=== PATIENT | female | born 1930 | race African-American/Black ===

== ENCOUNTER 2019-07-03 12:43 | Inpatient (IN) | payer MEDICARE, OTHER ==
[2019-07-03] VITALS (8 sets, daily range): BP systolic 133–168; BP diastolic 46–55
[~2019-07-03] VITALS: Ht 162.6 cm; Wt 78.8 kg
[~2019-07-03 12:43] MED LIST: ASPI-1009 PO; DEXT30DR6 OP; DONE5TAB3 PO; FERR325T28 PO; HYDR12.522 PO; LEVO88TA28 PO; LOVA40TA76 PO; MEMA5TAB PO; NOR5T PO; POTA20TA19 PO; VALS160T2 PO
--- NOTE | 2019-07-03 12:45 | NUR ---
MD IN ROOM, CENTRAL LINE BEING PLACED.
--- NOTE | 2019-07-03 12:45 | NUR ---
DURING TRIAGE, PT. WAS ALERT AND ORIENTED. TALKING TO US. PT. STOPPED RESPONDING, HAD A PULSE AND HAD A NEAR SYNCOPAL EPISODE, WAS CALLED TO ROOM
[2019-07-03] MEDS ORDERED: LIDOcaine 1% w/EPI 1:200,000 injection 10mL vial IM ONE (13:05)
[2019-07-03] MEDS ORDERED: LIDOcaine 1% w/EPI 1:100,000 30ml vial (MDV) IJ ONE (13:05)
--- NOTE | 2019-07-03 13:13 | NUR ---
PT. HAD A NEAR SYNCOPAL EPISODE. PER MD WE ARE EXTERNALLY PACING PT. HR FLUCTUATES RANGE IS SEEN FROM 24-36BPM
[2019-07-03 13:15] LABS: BASOPHILS # (AUTO) 0.1 X10'3 (0-0.2); BASOPHILS % (AUTO) 0.5 % (0-1); EOSINOPHILS # (AUTO) 0.1 X10'3 (0-0.9); EOSINOPHILS % (AUTO) 0.6 % (0-6); HEMATOCRIT 40.1 % (35.0-45.0); HEMOGLOBIN 13.1 g/dl (12.0-16.0); LYMPHOCYTES # (AUTO) 0.8 X10'3 (1.1-4.8); LYMPHOCYTES % (AUTO) 8.4 % (21-51); MEAN CORPUSCULAR HEMOGLOBIN 26.9 PG (27.0-31.0); MEAN CORPUSCULAR HGB CONC 32.7 g/dL (33.0-36.5); MEAN CORPUSCULAR VOLUME 82.2 FL (78-98); MEAN PLATELET VOLUME 9.9 FL (7.4-10.4); MONOCYTES # (AUTO) 0.4 X10'3 (0-0.9); MONOCYTES % (AUTO) 4.5 % (2-12); NEUTROPHILS # (AUTO) 8.1 X10'3 (1.8-7.7); PLATELET COUNT 151 X10'3 (140-440); RED BLOOD COUNT 4.88 X10'6 (4.20-5.60); RED CELL DISTRIBUTION WIDTH 15.8 % (11.5-14.5); WHITE BLOOD COUNT 9.4 X10'3 (4.5-11.0)
--- NOTE | 2019-07-03 13:22 | NUR ---
EXTERNALLY PACED AT 72PRM 60mA
--- NOTE | 2019-07-03 13:24 | NUR ---
externally paced at 90mA and 72bpm
--- NOTE | 2019-07-03 13:25 | NUR ---
verbal order for 50mcg of fentaly given my MD OHLFS
[2019-07-03] MEDS ORDERED: fentaNYL/PF 50MCG/1 ML 2ML syringe ONE ×2 (13:27→16:36)
[2019-07-03] MEDS ORDERED: fentaNYL/PF 50MCG/1 ML 2ML syringe IV ONE (13:30)
[2019-07-03] MEDS ORDERED: ondansetron/PF 4mg/2ml inj IV ONE (13:30)
[2019-07-03 13:31] LABS: PARTIAL THROMBOPLASTIN TIME 29 SECONDS (22-32)
[2019-07-03 13:34] LABS: ALANINE AMINOTRANSFERASE 59 U/L (12-78); ALBUMIN 3.7 G/DL (3.4-5.0); ALBUMIN/GLOBULIN RATIO 0.9 (1.1-1.5); ALKALINE PHOSPHATASE 76 IU/L (46-116); ANION GAP 11 (8-16); ASPARTATE AMINO TRANSFERASE 27 U/L (10-37); BILIRUBIN,TOTAL 0.5 MG/DL (0.1-1.0); BLOOD UREA NITROGEN 55 MG/DL (7-18); BUN/CREATININE RATIO 25.8 (6.6-38.0); CALCIUM 8.8 MG/DL (8.5-10.1); CHLORIDE 110 MMOL/L (99-107); CREATININE 2.13 MG/DL (0.40-0.90); GLUCOSE 213 MG/DL (70-104); SODIUM 140 MMOL/L (135-145); TOTAL CARBON DIOXIDE 19.1 MMOL/L (24-32); TOTAL PROTEIN 7.7 G/DL (6.4-8.2); eGFR 26 ML/MIN
--- NOTE | 2019-07-03 13:35 | NUR ---
ARTERIAL LINE BEING PLACED BY MD IN ROOM. PT. IS TALKING TO US AND BEING COOPERATIVE.
[2019-07-03 13:39] LABS: POTASSIUM 6.8 MMOL/L (3.5-5.1)
[2019-07-03] MEDS ORDERED: CLINDAmcin 900mg/NS 50ml IVPB 50 ML IV ONE (13:45)
[2019-07-03] MEDS ORDERED: normal saline 1000ML IV soln IVB ONE (13:50)
[2019-07-03] MEDS ORDERED: sodium bicarbonate (8.4%) inj. 1 MEQ/ML ML IV ONE (13:50)
[2019-07-03] MEDS ORDERED: dextrose 50%-water 50ml dispensing syringe IV ONE (13:50)
[2019-07-03] MEDS ORDERED: insulin regular, human 10 units/0.1 ml syringe IV ONE (13:50)
[2019-07-03] MEDS ORDERED: furosemide 40mg/4ml inj IV ONE (13:50)
[2019-07-03] MEDS ORDERED: acetaminophen 325mg tablet PO PRN ×2 (15:15)
[2019-07-03] MEDS ORDERED: sodium bicarbonate (8.4%) inj. 150 MEQ in dextrose 5%-water 1,000 ML IV SCH (15:20)
[2019-07-03] MEDS ORDERED: sodium polystyrene sulfonate 15gm/60ml oral suspension PO ONE (15:35)
--- NOTE | 2019-07-03 16:06 | NUR ---
Spoke with Dr Castro at this time regarding repeat K lab prior to administering kaexylate (see emar), okay to order K prior to admin.
[2019-07-03] MEDS ORDERED: midazolam 2 mg/2 ml injection ONE (16:36)
[2019-07-03] MEDS ORDERED: clindamycin phosphate 150mg/ml inj. ONE (16:36)
[2019-07-03] MEDS ORDERED: clindamycin 600mg/D5W 50ml 50 ML IV ONE (16:36)
[2019-07-03] MEDS ORDERED: LIDOcaine 1% W/epiNEPHrine 1:100,000 20ml vial ONE (16:36)
[2019-07-03] MEDS: sodium bicarbonate (8.4%) inj. 75 MEQ in dextrose 5% water 500ml 500 ML IV SCH ×2 (16:40→23:33)
[2019-07-03 16:50] LABS: ALBUMIN 3.1 G/DL (3.4-5.0); ANION GAP 11 (8-16); BLOOD UREA NITROGEN 53 MG/DL (7-18); BUN/CREATININE RATIO 25.6 (6.6-38.0); CALCIUM 8.3 MG/DL (8.5-10.1); CHLORIDE 111 MMOL/L (99-107); CREATININE 2.07 MG/DL (0.40-0.90); GLUCOSE 330 MG/DL (70-104); PHOSPHORUS 3.1 MG/DL (2.3-4.5); SODIUM 145 MMOL/L (135-145); TOTAL CARBON DIOXIDE 22.9 MMOL/L (24-32); eGFR 27 ML/MIN
--- NOTE | 2019-07-03 17:08 | NUR ---
TO SPRAYING MACHINE OPERATOR WITH DUSTIN ARZATE AT THIS TIME.
--- NOTE | 2019-07-03 19:09 | NUR ---
Pt back from the clinical laboratory scientist just prior to shift change. Received patient report from Sada CHAN. PPM in place, left arm in a sling. Temporary pacemaker off but connected. Transducing artline to right groin.
[2019-07-03 20:22] LABS: ALBUMIN 2.3 G/DL (3.4-5.0); ANION GAP 14 (8-16); BLOOD UREA NITROGEN 41 MG/DL (7-18); BUN/CREATININE RATIO 29.3 (6.6-38.0); CHLORIDE 118 MMOL/L (99-107); GLUCOSE 214 MG/DL (70-104); MAGNESIUM 1.3 MG/DL (1.5-2.4); PHOSPHORUS 2.9 MG/DL (2.3-4.5); POTASSIUM 3.1 MMOL/L (3.5-5.1); SODIUM 148 MMOL/L (135-145); TOTAL CARBON DIOXIDE 16.3 MMOL/L (24-32); eGFR 43 ML/MIN
[2019-07-03 20:33] LABS: CALCIUM 5.3 MG/DL (8.5-10.1)
[2019-07-03] MEDS ORDERED: calcium chloride 100 MG/1 ML inj IV ONE (20:40)
[2019-07-03] MEDS: docusate sod 100mg capsule PO SCH (21:07)
[2019-07-03] MEDS: heparin, porcine 5000 units/ml vial SQ SCH (21:07)
--- NOTE | 2019-07-03 22:00 | NUR ---
Assumed patient care. I have received report from Amy Faye RN. Patient resting comfortably in bed, offers no complaints at this time. Will continue to monitor.
--- NOTE | 2019-07-03 22:01 | NUR ---
pt report given to Charlotte CHAN
[2019-07-04] VITALS (20 sets, daily range): BP systolic 148–190; BP diastolic 46–69
--- NOTE | 2019-07-04 00:04 | NUR ---
Problems reprioritized. Patient report given, questions answered & plan of care reviewed with Lauren CHAN.
[2019-07-04] MEDS: clindamycin 600mg/D5W 50ml 50 ML IV SCH ×3 (00:42→17:00)
[2019-07-04] MEDS: hydrALAZINE 20mg/ml inj. IV PRN ×2 (02:37→11:50)
[2019-07-04] MEDS: sodium bicarbonate (8.4%) inj. 75 MEQ in dextrose 5% water 500ml 500 ML IV SCH ×5 (03:01→23:04)
[2019-07-04 03:04] LABS: BASOPHILS % (AUTO) 0.3 % (0-1); EOSINOPHILS % (AUTO) 0.5 % (0-6); HEMATOCRIT 33.3 % (35.0-45.0); LYMPHOCYTES % (AUTO) 11.3 % (21-51); MEAN CORPUSCULAR HEMOGLOBIN 26.7 PG (27.0-31.0); MEAN CORPUSCULAR HGB CONC 33.2 g/dL (33.0-36.5); MEAN CORPUSCULAR VOLUME 80.3 FL (78-98); MEAN PLATELET VOLUME 9.8 FL (7.4-10.4); MONOCYTES # (AUTO) 0.7 X10'3 (0-0.9); MONOCYTES % (AUTO) 7.6 % (2-12); NEUTROPHILS # (AUTO) 7.3 X10'3 (1.8-7.7); NEUTROPHILS % (AUTO) 80.3 % (42-75); PLATELET COUNT 131 X10'3 (140-440); RED BLOOD COUNT 4.14 X10'6 (4.20-5.60); RED CELL DISTRIBUTION WIDTH 15.5 % (11.5-14.5); WHITE BLOOD COUNT 9.1 X10'3 (4.5-11.0)
[2019-07-04 03:14] LABS: ALANINE AMINOTRANSFERASE 42 U/L (12-78); ALBUMIN 2.9 G/DL (3.4-5.0); ALBUMIN/GLOBULIN RATIO 0.9 (1.1-1.5); ALKALINE PHOSPHATASE 61 IU/L (46-116); ANION GAP 8 (8-16); ASPARTATE AMINO TRANSFERASE 16 U/L (10-37); BILIRUBIN,TOTAL 0.5 MG/DL (0.1-1.0); BLOOD UREA NITROGEN 45 MG/DL (7-18); CALCIUM 8.3 MG/DL (8.5-10.1); CHLORIDE 109 MMOL/L (99-107); CREATININE 1.73 MG/DL (0.40-0.90); GLUCOSE 179 MG/DL (70-104); POTASSIUM 4.3 MMOL/L (3.5-5.1); SODIUM 144 MMOL/L (135-145); TOTAL CARBON DIOXIDE 26.6 MMOL/L (24-32); eGFR 34 ML/MIN
[2019-07-04 03:16] LABS: MAGNESIUM 1.7 MG/DL (1.5-2.4); PHOSPHORUS 4.3 MG/DL (2.3-4.5)
[2019-07-04 03:17] LABS: TROPONIN I 0.09 NG/ML (0.0-0.05)
[2019-07-04] MEDS ORDERED: pantoprazole 40 MG vial IV SCH (08:00)
[2019-07-04] MEDS ORDERED: MULT-955 PO (08:51)
[2019-07-04] MEDS: pantoprazole 40mg Tablet.DR PO SCH (10:57)
[2019-07-04] MEDS: docusate sod 100mg capsule PO SCH ×2 (10:57→20:00)
[2019-07-04] MEDS: heparin, porcine 5000 units/ml vial SQ SCH ×2 (10:58→20:19)
[2019-07-04 11:48] LABS: ALBUMIN 2.8 G/DL (3.4-5.0); ANION GAP 11 (8-16); BLOOD UREA NITROGEN 36 MG/DL (7-18); BUN/CREATININE RATIO 23.7 (6.6-38.0); CALCIUM 7.8 MG/DL (8.5-10.1); CHLORIDE 106 MMOL/L (99-107); CREATININE 1.52 MG/DL (0.40-0.90); GLUCOSE 219 MG/DL (70-104); PHOSPHORUS 3.3 MG/DL (2.3-4.5); POTASSIUM 4.1 MMOL/L (3.5-5.1); SODIUM 144 MMOL/L (135-145); TOTAL CARBON DIOXIDE 26.6 MMOL/L (24-32); eGFR 39 ML/MIN
[2019-07-04] MEDS: losartan 50mg tablet PO SCH (14:46)
[2019-07-04] MEDS: amLODIPine 5mg tablet PO SCH (14:46)
--- NOTE | 2019-07-04 18:35 | NUR ---
Patient in room CICU 2008. I have received report from Sada CHAN and had the opportunity to ask questions and assume patient care. Patient sitting in bed eating dinner, very confused and constantly asking if she can get out of bed to use the bathroom. Educated patient that she cannot get up due to placement of arterial line in groin. Patient otherwise stable, offers no other complaints at this time. Will continue to re-orient patient as needed, bed exit alarm on.
[2019-07-04] MEDS: ondansetron/PF 4mg/2ml inj IV PRN (20:03)
[2019-07-04] MEDS: memantine 5mg tablet PO SCH (20:19)
[2019-07-04 23:43] LABS: ALBUMIN 2.7 G/DL (3.4-5.0); ANION GAP 6 (8-16); BLOOD UREA NITROGEN 35 MG/DL (7-18); BUN/CREATININE RATIO 22.3 (6.6-38.0); CALCIUM 8.1 MG/DL (8.5-10.1); CHLORIDE 106 MMOL/L (99-107); CREATININE 1.57 MG/DL (0.40-0.90); GLUCOSE 147 MG/DL (70-104); PHOSPHORUS 3.7 MG/DL (2.3-4.5); POTASSIUM 3.9 MMOL/L (3.5-5.1); SODIUM 142 MMOL/L (135-145); TOTAL CARBON DIOXIDE 30.5 MMOL/L (24-32); eGFR 38 ML/MIN
[2019-07-05] VITALS (28 sets, daily range): BP systolic 145–181; BP diastolic 55–68
--- NOTE | 2019-07-05 00:10 | NUR ---
Patient very confused and forgetful, constantly taking nasal cannula off. Saturation drops to 87% with oxygen off. Will continue to re-orient patient and remind that she needs nasal cannula in.
[2019-07-05 04:49] LABS: BASOPHILS % (AUTO) 0.4 % (0-1); EOSINOPHILS # (AUTO) 0.1 X10'3 (0-0.9); HEMATOCRIT 33.4 % (35.0-45.0); LYMPHOCYTES # (AUTO) 0.8 X10'3 (1.1-4.8); LYMPHOCYTES % (AUTO) 11.1 % (21-51); MEAN CORPUSCULAR HEMOGLOBIN 26.7 PG (27.0-31.0); MEAN CORPUSCULAR HGB CONC 32.8 g/dL (33.0-36.5); MEAN CORPUSCULAR VOLUME 81.4 FL (78-98); MEAN PLATELET VOLUME 9.5 FL (7.4-10.4); MONOCYTES # (AUTO) 0.7 X10'3 (0-0.9); MONOCYTES % (AUTO) 10.1 % (2-12); NEUTROPHILS # (AUTO) 5.6 X10'3 (1.8-7.7); NEUTROPHILS % (AUTO) 76.4 % (42-75); PLATELET COUNT 112 X10'3 (140-440); RED BLOOD COUNT 4.11 X10'6 (4.20-5.60); WHITE BLOOD COUNT 7.3 X10'3 (4.5-11.0)
[2019-07-05 04:52] LABS: ALANINE AMINOTRANSFERASE 33 U/L (12-78); ALBUMIN 2.6 G/DL (3.4-5.0); ALBUMIN/GLOBULIN RATIO 0.9 (1.1-1.5); ALKALINE PHOSPHATASE 58 IU/L (46-116); ANION GAP 4 (8-16); ASPARTATE AMINO TRANSFERASE 14 U/L (10-37); BILIRUBIN,TOTAL 0.4 MG/DL (0.1-1.0); BLOOD UREA NITROGEN 31 MG/DL (7-18); BUN/CREATININE RATIO 20.3 (6.6-38.0); CALCIUM 7.9 MG/DL (8.5-10.1); CHLORIDE 105 MMOL/L (99-107); CREATININE 1.53 MG/DL (0.40-0.90); GLUCOSE 153 MG/DL (70-104); MAGNESIUM 1.7 MG/DL (1.5-2.4); PHOSPHORUS 3.6 MG/DL (2.3-4.5); POTASSIUM 3.7 MMOL/L (3.5-5.1); SODIUM 141 MMOL/L (135-145); TOTAL CARBON DIOXIDE 32.5 MMOL/L (24-32); TOTAL PROTEIN 5.5 G/DL (6.4-8.2); eGFR 39 ML/MIN
--- NOTE | 2019-07-05 06:24 | NUR ---
Problems reprioritized. Patient report given, questions answered & plan of care reviewed with Sascha CAHN.
[2019-07-05] MEDS ORDERED: amLODIPine 5mg tablet PO SCH (08:00)
[2019-07-05] MEDS: pantoprazole 40mg Tablet.DR PO SCH (08:19)
[2019-07-05] MEDS: atorvastatin 10mg tablet PO SCH (08:19)
[2019-07-05] MEDS: levoTHYROXINE 88mcg tablet PO SCH (08:19)
[2019-07-05] MEDS: multivitamins, therapeutics tablet PO SCH (08:19)
[2019-07-05] MEDS: docusate sod 100mg capsule PO SCH ×2 (08:19→19:45)
[2019-07-05] MEDS: HYDROchlorothiazide 12.5mg capsule PO SCH (08:19)
[2019-07-05] MEDS: heparin, porcine 5000 units/ml vial SQ SCH ×2 (08:20→19:46)
[2019-07-05] MEDS: donepezil 5mg tablet PO SCH (08:20)
[2019-07-05] MEDS: memantine 5mg tablet PO SCH ×2 (08:20→19:45)
[2019-07-05] MEDS: ferrous sulfate 325mg tablet PO SCH (08:20)
[2019-07-05] MEDS: hydrALAZINE 20mg/ml inj. IV PRN (09:22)
[2019-07-05] MEDS ORDERED: furosemide 40mg/4ml inj IV ONE (09:50)
[2019-07-05] MEDS ORDERED: furosemide 40mg/4ml inj ONE (09:51)
[2019-07-05] MEDS: amLODIPine 5mg tablet PO SCH (13:47)
[2019-07-05] MEDS: losartan 50mg tablet PO SCH (13:47)
[2019-07-05] MEDS ORDERED: lactulose 20gm/30ml cup PO PRN (15:15)
--- NOTE | 2019-07-05 18:44 | NUR ---
icu day shift RN called report to PCU night shift supervisor nurse patient went up in hospital bed on tele with personal belongings,no observable s/s of acute stress at this time
--- NOTE | 2019-07-05 18:44 | NUR ---
End of shift report; blood glucose results reported to Dr. Joaquin, no new orders. Report called to Valarie on PCU at 1840.
--- NOTE | 2019-07-05 18:44 | NUR ---
Patient in room CICU 2008. I have received report from DUSTIN Caicedo and had the opportunity to ask questions. Awaiting patient transfer to room 3009 on PCU.
--- NOTE | 2019-07-05 19:30 | NUR ---
Patient arrived to floor at 1915 by hospital bed. Patient awake and alert. 2L NC. All patient belongings and chart transferred with patient. SCD's placed. On telemetry unit 44. Patient is complaining of left sided foot pain. Hot to touch. Pictures obtained and placed in chart. Sitter in room. Will continue to monitor closely.
--- NOTE | 2019-07-05 22:51 | NUR ---
Left foot hot to touch. 20 G L AC infiltrated. No IV access at this time. Raymond Acevedo NP notified. No new orders at this time. Will continue to monitor closely.
--- NOTE | 2019-07-05 23:41 | NUR ---
Patient Systolic BP elevated 169/62 right arm; 160/61 left arm. Curtis notified. Orders for 25 mg vasotec obtained, however, [facility] pharmacy does not carry PO vasotec. Attempted to contact Curtis again to notify and obtain substitue. On standby and will contact again shortly. Addendum: 07/05/19 at 2355 by Luiz Howard RN Contacted Curtis and clarified order. 25 mg PO hydralazine q6h for systolic over 165.
[2019-07-06] MEDS: hydrALAZINE 25 MG tablet PO PRN (00:06)
[2019-07-06 02:00] VITALS: BP 148/64
--- NOTE | 2019-07-06 03:25 | NUR ---
Attempted to notify on-call provider scribe of elevated systolic of 159/59. Patient received 25 mg Hydralazine PO at midnight. Will attempt to call again shortly.
[2019-07-06 06:00] VITALS: BP 152/56
--- NOTE | 2019-07-06 06:00 | NUR ---
Patient in room PCU 3008. I have received report from Fer CHAN and had the opportunity to ask questions and assume patient care.
[2019-07-06 06:07] LABS: BASOPHILS % (AUTO) 0.4 % (0-1); EOSINOPHILS # (AUTO) 0.2 X10'3 (0-0.9); EOSINOPHILS % (AUTO) 1.8 % (0-6); HEMATOCRIT 33.3 % (35.0-45.0); LYMPHOCYTES # (AUTO) 0.8 X10'3 (1.1-4.8); LYMPHOCYTES % (AUTO) 9.7 % (21-51); MEAN CORPUSCULAR HEMOGLOBIN 26.8 PG (27.0-31.0); MEAN CORPUSCULAR VOLUME 81.1 FL (78-98); MONOCYTES # (AUTO) 0.8 X10'3 (0-0.9); MONOCYTES % (AUTO) 9.4 % (2-12); NEUTROPHILS # (AUTO) 6.9 X10'3 (1.8-7.7); NEUTROPHILS % (AUTO) 78.7 % (42-75); PLATELET COUNT 115 X10'3 (140-440); RED BLOOD COUNT 4.11 X10'6 (4.20-5.60); RED CELL DISTRIBUTION WIDTH 14.9 % (11.5-14.5); WHITE BLOOD COUNT 8.7 X10'3 (4.5-11.0)
[2019-07-06 06:27] LABS: ALANINE AMINOTRANSFERASE 27 U/L (12-78); ALBUMIN 2.5 G/DL (3.4-5.0); ALBUMIN/GLOBULIN RATIO 0.8 (1.1-1.5); ALKALINE PHOSPHATASE 55 IU/L (46-116); ANION GAP 7 (8-16); ASPARTATE AMINO TRANSFERASE 14 U/L (10-37); BILIRUBIN,TOTAL 0.5 MG/DL (0.1-1.0); BLOOD UREA NITROGEN 28 MG/DL (7-18); BUN/CREATININE RATIO 19.3 (6.6-38.0); CHLORIDE 100 MMOL/L (99-107); CREATININE 1.45 MG/DL (0.40-0.90); GLUCOSE 132 MG/DL (70-104); MAGNESIUM 1.9 MG/DL (1.5-2.4); POTASSIUM 3.6 MMOL/L (3.5-5.1); SODIUM 139 MMOL/L (135-145); TOTAL CARBON DIOXIDE 32.1 MMOL/L (24-32); TOTAL PROTEIN 5.8 G/DL (6.4-8.2); eGFR 41 ML/MIN
--- NOTE | 2019-07-06 06:30 | NUR ---
Problems reprioritized. Patient report given, questions answered & plan of care reviewed with Cristal CHAN.
--- NOTE | 2019-07-06 06:30 | NUR ---
Problems reprioritized. Patient report given, questions answered & plan of care reviewed with DUSTIN Lu.
--- NOTE | 2019-07-06 06:50 | NUR ---
Paged PICC nurse [phone] Ashleigh Hernandez NOC shift attempted PIV x3. Unable to get a line. IV access needed. Thanks!
[2019-07-06] MEDS: donepezil 5mg tablet PO SCH (07:29)
[2019-07-06] MEDS: ferrous sulfate 325mg tablet PO SCH (07:29)
[2019-07-06] MEDS: pantoprazole 40mg Tablet.DR PO SCH (07:29)
[2019-07-06] MEDS: docusate sod 100mg capsule PO SCH ×2 (07:29→19:38)
[2019-07-06] MEDS: levoTHYROXINE 88mcg tablet PO SCH (07:29)
[2019-07-06] MEDS: multivitamins, therapeutics tablet PO SCH (07:29)
[2019-07-06] MEDS: memantine 5mg tablet PO SCH ×2 (07:30→19:39)
[2019-07-06] MEDS: atorvastatin 10mg tablet PO SCH (07:30)
[2019-07-06] MEDS: heparin, porcine 5000 units/ml vial SQ SCH ×2 (07:31→19:38)
[2019-07-06] MEDS: HYDROchlorothiazide 12.5mg capsule PO SCH (07:33)
[2019-07-06 11:00] VITALS: BP 138/60
[2019-07-06 11:19] LABS: CLARITY,URINE TURBID (Clear); COLOR,URINE AMBER (Yellow); GLUCOSE, URINE NEGATIVE (Neg); KETONES,URINE NEGATIVE (Neg); LEUKOCYTE ESTERASE ,URINE TRACE (Neg); NITRITES, URINE NEGATIVE (Neg); OCCULT BLOOD,URINE LARGE (Neg); PH,URINE 6.5 (4.8-8.0); PROTEIN,URINE 100 mg/dl (Neg); UROBILINOGEN,URINE 0.2 E.U/dL (0.2-1.0)
[2019-07-06 11:22] LABS: UA COLLECTION TYPE FOLEY CATH
[2019-07-06 11:33] LABS: SQUAMOUS EPITHELIAL CELL,UR FEW /LPF (FEW)
[2019-07-06 11:34] LABS: BACTERIA,URINE FEW /HPF (Neg); RBC,URINE TNTC /HPF (0-2)
[2019-07-06 11:35] LABS: WBC CLUMPS,URINE FEW /HPF (NEGATIVE)
[2019-07-06] MEDS: losartan 50mg tablet PO SCH (14:40)
[2019-07-06] MEDS: amLODIPine 5mg tablet PO SCH (14:41)
[2019-07-06 15:00] VITALS: BP 137/56
--- NOTE | 2019-07-06 16:29 | NUR ---
Discontinued freed catheter. 10ml aspirated from freed balloon. Patient tolerated removal well. Will monitor for normal voiding and output.
--- NOTE | 2019-07-06 18:30 | NUR ---
Patient in room PCU 3008. I have received report from Tabitha CHAN and had the opportunity to ask questions and assume patient care. Patient is alert and oriented. Sitter is at bedside, will continue to monitor.
[2019-07-06 19:00] VITALS: BP 150/54
[2019-07-06 23:00] VITALS: BP 142/52
[2019-07-07 03:00] VITALS: BP 132/51
[2019-07-07 05:20] LABS: BASOPHILS % (AUTO) 0.5 % (0-1); EOSINOPHILS # (AUTO) 0.2 X10'3 (0-0.9); EOSINOPHILS % (AUTO) 2.3 % (0-6); HEMATOCRIT 31.3 % (35.0-45.0); HEMOGLOBIN 10.5 g/dl (12.0-16.0); LYMPHOCYTES # (AUTO) 0.8 X10'3 (1.1-4.8); LYMPHOCYTES % (AUTO) 8.8 % (21-51); MEAN CORPUSCULAR HEMOGLOBIN 27.1 PG (27.0-31.0); MEAN CORPUSCULAR HGB CONC 33.6 g/dL (33.0-36.5); MEAN CORPUSCULAR VOLUME 80.8 FL (78-98); MONOCYTES # (AUTO) 0.9 X10'3 (0-0.9); MONOCYTES % (AUTO) 9.6 % (2-12); NEUTROPHILS # (AUTO) 7.6 X10'3 (1.8-7.7); NEUTROPHILS % (AUTO) 78.8 % (42-75); PLATELET COUNT 129 X10'3 (140-440); RED BLOOD COUNT 3.87 X10'6 (4.20-5.60); RED CELL DISTRIBUTION WIDTH 15.2 % (11.5-14.5); WHITE BLOOD COUNT 9.6 X10'3 (4.5-11.0)
[2019-07-07 05:52] LABS: ALANINE AMINOTRANSFERASE 30 U/L (12-78); ALBUMIN 2.6 G/DL (3.4-5.0); ALBUMIN/GLOBULIN RATIO 0.7 (1.1-1.5); ALKALINE PHOSPHATASE 56 IU/L (46-116); ANION GAP 9 (8-16); ASPARTATE AMINO TRANSFERASE 23 U/L (10-37); BILIRUBIN,TOTAL 0.5 MG/DL (0.1-1.0); BLOOD UREA NITROGEN 38 MG/DL (7-18); BUN/CREATININE RATIO 22.4 (6.6-38.0); CALCIUM 7.6 MG/DL (8.5-10.1); CHLORIDE 99 MMOL/L (99-107); GLUCOSE 147 MG/DL (70-104); PHOSPHORUS 3.8 MG/DL (2.3-4.5); POTASSIUM 3.8 MMOL/L (3.5-5.1); SODIUM 137 MMOL/L (135-145); TOTAL CARBON DIOXIDE 29.4 MMOL/L (24-32); TOTAL PROTEIN 6.2 G/DL (6.4-8.2); eGFR 34 ML/MIN
[2019-07-07 06:00] VITALS: BP 148/53
--- NOTE | 2019-07-07 06:00 | NUR ---
Patient in room PCU 3008. I have received report from Cristal CHAN and had the opportunity to ask questions and assume patient care.
--- NOTE | 2019-07-07 06:24 | NUR ---
Problems reprioritized. Patient report given, questions answered & plan of care reviewed with Tabitha CHAN.
[2019-07-07] MEDS: ferrous sulfate 325mg tablet PO SCH (09:25)
[2019-07-07] MEDS: donepezil 5mg tablet PO SCH (09:25)
[2019-07-07] MEDS: docusate sod 100mg capsule PO SCH ×2 (09:25→22:12)
[2019-07-07] MEDS: HYDROchlorothiazide 12.5mg capsule PO SCH (09:25)
[2019-07-07] MEDS: atorvastatin 10mg tablet PO SCH (09:26)
[2019-07-07] MEDS: pantoprazole 40mg Tablet.DR PO SCH (09:26)
[2019-07-07] MEDS: memantine 5mg tablet PO SCH ×2 (09:26→22:14)
[2019-07-07] MEDS: multivitamins, therapeutics tablet PO SCH (09:26)
[2019-07-07] MEDS: levoTHYROXINE 88mcg tablet PO SCH (09:26)
[2019-07-07] MEDS: heparin, porcine 5000 units/ml vial SQ SCH ×2 (09:28→22:11)
[2019-07-07 11:00] VITALS: BP 137/61
--- NOTE | 2019-07-07 12:31 | NUR ---
O2 Sat at rest on room air: 92% O2 Sat while ambulating on room air: 83% Recovery O2 Sat while ambulating on 2 LPM: 92% Addendum: 07/07/19 at 1255 by Tabitha Robles RN Amended: Links added.
[2019-07-07] MEDS: losartan 50mg tablet PO SCH (13:51)
[2019-07-07] MEDS: clindamycin 150mg capsule PO SCH ×2 (13:52→22:12)
[2019-07-07] MEDS: amLODIPine 5mg tablet PO SCH (13:52)
--- NOTE | 2019-07-07 14:00 | NUR ---
Spoke with Marcelina, patient'heather bran. While going over the patient's plan of care we had discussed her code status. I had informed Marcelina that the patient's current code status on record is FULL code, to which Marcelina stated that the patient wishes to be DNR. We spoke with the patient who was alert, oriented, and appropriate during this conversation, and she confirmed that her wish is to be DNR. Marcelina also stated that if need be, she is able to provide paperwork that supports the patient's wishes. I informed Dr. Joaquin of the conversation and he has changed her status on our records to match the patient's wishes. DNR bracelet placed on patient's left wrist for easy identification.
--- NOTE | 2019-07-07 14:11 | NUR ---
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 Pt now with a permanent pacemaker and MARY resolved per MD notes. Pt currently on heart healthy diet with fluctuating PO intake, previously 50-75% then down to 25% on 07/05. No documentation of PO intake dinner 07/05-present. D/w RN who reports pt not eating much d/t low appetite with only a few bites of eggs and bread at breakfast however with improved PO intake at lunch with about 30-50% consumed. Pt with a sitter who is encouraging PO intake per RN. LBM 07/06. Will continue to follow and monitor need for ONS. Recommendations: 1) Continue heart healthy diet 2) Encourage PO intake 3) Monitor need for ONS 4) Routine bowel care 5) Wt per rx Addendum: 07/07/19 at [address] Amended: Links added.
[2019-07-07 15:00] VITALS: BP 131/61
[2019-07-07 18:00] VITALS: BP 142/66
--- NOTE | 2019-07-07 18:00 | NUR ---
Problems reprioritized. Patient report given, questions answered & plan of care reviewed with Cristal CHAN.
--- NOTE | 2019-07-07 18:30 | NUR ---
Patient in room PCU 3008. I have received report from Tabitha CHAN and had the opportunity to ask questions and assume patient care.
[2019-07-07] MEDS: HYDROcodone/acetaminophen 5mg/325mg tablet PO PRN (18:49)
[2019-07-07 22:00] VITALS: BP 136/55
[2019-07-07] MEDS: furosemide 40mg/4ml inj IV SCH (22:11)
[2019-07-08 02:00] VITALS: BP 141/53
[2019-07-08 05:42] LABS: BASOPHILS % (AUTO) 0.2 % (0-1); EOSINOPHILS % (AUTO) 0.2 % (0-6); HEMATOCRIT 29.1 % (35.0-45.0); HEMOGLOBIN 9.8 g/dl (12.0-16.0); LYMPHOCYTES # (AUTO) 0.7 X10'3 (1.1-4.8); LYMPHOCYTES % (AUTO) 5.9 % (21-51); MEAN CORPUSCULAR HGB CONC 33.5 g/dL (33.0-36.5); MEAN CORPUSCULAR VOLUME 80.5 FL (78-98); MEAN PLATELET VOLUME 9.7 FL (7.4-10.4); MONOCYTES # (AUTO) 1.5 X10'3 (0-0.9); MONOCYTES % (AUTO) 13.4 % (2-12); NEUTROPHILS # (AUTO) 9.2 X10'3 (1.8-7.7); NEUTROPHILS % (AUTO) 80.3 % (42-75); PLATELET COUNT 127 X10'3 (140-440); RED BLOOD COUNT 3.62 X10'6 (4.20-5.60); RED CELL DISTRIBUTION WIDTH 15.1 % (11.5-14.5); WHITE BLOOD COUNT 11.4 X10'3 (4.5-11.0)
[2019-07-08 05:52] LABS: ALANINE AMINOTRANSFERASE 44 U/L (12-78); ALBUMIN 2.5 G/DL (3.4-5.0); ALBUMIN/GLOBULIN RATIO 0.6 (1.1-1.5); ALKALINE PHOSPHATASE 70 IU/L (46-116); ANION GAP 10 (8-16); ASPARTATE AMINO TRANSFERASE 29 U/L (10-37); BILIRUBIN,TOTAL 0.8 MG/DL (0.1-1.0); BLOOD UREA NITROGEN 47 MG/DL (7-18); BUN/CREATININE RATIO 23.5 (6.6-38.0); CALCIUM 7.5 MG/DL (8.5-10.1); CHLORIDE 95 MMOL/L (99-107); GLUCOSE 176 MG/DL (70-104); PHOSPHORUS 4.8 MG/DL (2.3-4.5); POTASSIUM 3.7 MMOL/L (3.5-5.1); SODIUM 135 MMOL/L (135-145); TOTAL CARBON DIOXIDE 30.1 MMOL/L (24-32); TOTAL PROTEIN 6.5 G/DL (6.4-8.2); eGFR 28 ML/MIN
[2019-07-08 06:00] VITALS: BP 195/60
--- NOTE | 2019-07-08 06:30 | NUR ---
Problems reprioritized. Patient report given, questions answered & plan of care reviewed with Heladio CHAN.
--- NOTE | 2019-07-08 07:05 | NUR ---
Patient in room PCU 3008. I have received report from DUSTIN Bee and had the opportunity to ask questions and assume patient care.
[2019-07-08] MEDS: furosemide 40mg/4ml inj IV SCH ×2 (07:17→20:12)
[2019-07-08] MEDS: ferrous sulfate 325mg tablet PO SCH (07:17)
[2019-07-08] MEDS: memantine 5mg tablet PO SCH ×2 (07:17→20:06)
[2019-07-08] MEDS: docusate sod 100mg capsule PO SCH ×2 (07:17→20:06)
[2019-07-08] MEDS: clindamycin 150mg capsule PO SCH ×2 (07:17→20:08)
[2019-07-08] MEDS: levoTHYROXINE 88mcg tablet PO SCH (07:17)
[2019-07-08] MEDS: HYDROchlorothiazide 12.5mg capsule PO SCH (07:17)
[2019-07-08] MEDS: heparin, porcine 5000 units/ml vial SQ SCH ×2 (07:17→20:12)
[2019-07-08] MEDS: donepezil 5mg tablet PO SCH (07:18)
[2019-07-08] MEDS: pantoprazole 40mg Tablet.DR PO SCH (07:18)
[2019-07-08] MEDS: multivitamins, therapeutics tablet PO SCH (07:18)
[2019-07-08] MEDS: atorvastatin 10mg tablet PO SCH (07:18)
[2019-07-08 11:00] VITALS: BP 141/61
[2019-07-08] MEDS: amLODIPine 5mg tablet PO SCH (14:44)
[2019-07-08] MEDS: losartan 50mg tablet PO SCH (14:44)
[2019-07-08 15:00] VITALS: BP 143/60
[2019-07-08 15:01] LABS: CLARITY,URINE SLIGHTLY CLOUDY (Clear); COLOR,URINE YELLOW (Yellow); GLUCOSE, URINE NEGATIVE (Neg); KETONES,URINE NEGATIVE (Neg); LEUKOCYTE ESTERASE ,URINE NEGATIVE (Neg); NITRITES, URINE NEGATIVE (Neg); OCCULT BLOOD,URINE TRACE-INTACT (Neg); PROTEIN,URINE NEGATIVE (Neg); UROBILINOGEN,URINE 0.2 E.U/dL (0.2-1.0)
[2019-07-08 15:05] LABS: UA COLLECTION TYPE STRAIGHT CATH
[2019-07-08 15:11] LABS: BACTERIA,URINE FEW /HPF (Neg); HYALINE CASTS 0-3 /LPF (NEGATIVE); MUCUS STRANDS NONE SEEN /LPF (Neg); RBC,URINE 0-2 /HPF (0-2); SQUAMOUS EPITHELIAL CELL,UR NONE SEEN /LPF (FEW); TRANSITIONAL EPI CELLS,URINE FEW /HPF; WBC CLUMPS,URINE FEW /HPF (NEGATIVE)
--- NOTE | 2019-07-08 18:05 | NUR ---
Problems reprioritized. Patient report given, questions answered & plan of care reviewed with DUSTIN Conley.
--- NOTE | 2019-07-08 18:20 | NUR ---
Patient in room U 3008. I have received report from Heladio CHAN and had the opportunity to ask questions and assume patient care. Patient is resting with sitter in the room.
[2019-07-08 19:00] VITALS: BP 131/59
[2019-07-08] MEDS: lactobacillus rhamnosus 10,000 MMU CELLS/CAPSULE PO SCH (20:05)
[2019-07-08] MEDS: tamsulosin 0.4mg capsule PO SCH (20:08)
[2019-07-08] MEDS: HYDROcodone/acetaminophen 5mg/325mg tablet PO PRN (20:11)
[2019-07-08 23:00] VITALS: BP 154/52
[2019-07-09 03:00] VITALS: BP 144/54
[2019-07-09 06:00] VITALS: BP 124/58
--- NOTE | 2019-07-09 06:07 | NUR ---
Patient in room PCU 3008. I have received report from DUSTIN Bee and had the opportunity to ask questions and assume patient care.
--- NOTE | 2019-07-09 06:13 | NUR ---
Problems reprioritized. Patient report given, questions answered & plan of care reviewed with Heladio CHAN.
[2019-07-09 06:29] LABS: BASOPHILS % (AUTO) 0.2 % (0-1); EOSINOPHILS % (AUTO) 0.2 % (0-6); HEMATOCRIT 28.1 % (35.0-45.0); HEMOGLOBIN 9.4 g/dl (12.0-16.0); LYMPHOCYTES # (AUTO) 0.6 X10'3 (1.1-4.8); LYMPHOCYTES % (AUTO) 5.6 % (21-51); MEAN CORPUSCULAR HGB CONC 33.5 g/dL (33.0-36.5); MEAN CORPUSCULAR VOLUME 80.6 FL (78-98); MEAN PLATELET VOLUME 9.2 FL (7.4-10.4); MONOCYTES # (AUTO) 1.3 X10'3 (0-0.9); MONOCYTES % (AUTO) 11.2 % (2-12); NEUTROPHILS # (AUTO) 9.3 X10'3 (1.8-7.7); NEUTROPHILS % (AUTO) 82.8 % (42-75); PLATELET COUNT 120 X10'3 (140-440); RED BLOOD COUNT 3.49 X10'6 (4.20-5.60); WHITE BLOOD COUNT 11.2 X10'3 (4.5-11.0)
[2019-07-09 06:58] LABS: ALANINE AMINOTRANSFERASE 66 U/L (12-78); ALBUMIN 2.5 G/DL (3.4-5.0); ALBUMIN/GLOBULIN RATIO 0.6 (1.1-1.5); ALKALINE PHOSPHATASE 80 IU/L (46-116); ANION GAP 11 (8-16); ASPARTATE AMINO TRANSFERASE 44 U/L (10-37); BILIRUBIN,TOTAL 0.7 MG/DL (0.1-1.0); BLOOD UREA NITROGEN 56 MG/DL (7-18); BUN/CREATININE RATIO 26.4 (6.6-38.0); CALCIUM 7.8 MG/DL (8.5-10.1); CHLORIDE 95 MMOL/L (99-107); CREATININE 2.12 MG/DL (0.40-0.90); GLUCOSE 164 MG/DL (70-104); MAGNESIUM 2.4 MG/DL (1.5-2.4); POTASSIUM 3.5 MMOL/L (3.5-5.1); SODIUM 135 MMOL/L (135-145); TOTAL CARBON DIOXIDE 29.5 MMOL/L (24-32); eGFR 27 ML/MIN
[2019-07-09] MEDS: levoTHYROXINE 88mcg tablet PO SCH (07:25)
[2019-07-09] MEDS: pantoprazole 40mg Tablet.DR PO SCH (07:49)
[2019-07-09] MEDS: ferrous sulfate 325mg tablet PO SCH (08:22)
[2019-07-09] MEDS: docusate sod 100mg capsule PO SCH ×2 (08:22→20:47)
[2019-07-09] MEDS: HYDROchlorothiazide 12.5mg capsule PO SCH (08:22)
[2019-07-09] MEDS: memantine 5mg tablet PO SCH ×2 (08:23→20:48)
[2019-07-09] MEDS: multivitamins, therapeutics tablet PO SCH (08:23)
[2019-07-09] MEDS: donepezil 5mg tablet PO SCH (08:23)
[2019-07-09] MEDS: atorvastatin 10mg tablet PO SCH (08:23)
[2019-07-09] MEDS: clindamycin 150mg capsule PO SCH ×2 (08:23→20:47)
[2019-07-09] MEDS: heparin, porcine 5000 units/ml vial SQ SCH ×2 (08:24→20:48)
[2019-07-09] MEDS: furosemide 40mg/4ml inj IV SCH (08:24)
[2019-07-09] MEDS: lactobacillus rhamnosus 10,000 MMU CELLS/CAPSULE PO SCH ×2 (08:33→20:47)
[2019-07-09 11:00] VITALS: BP 128/61
[2019-07-09] MEDS: losartan 50mg tablet PO SCH (14:37)
[2019-07-09] MEDS: amLODIPine 5mg tablet PO SCH (14:37)
[2019-07-09 15:00] VITALS: BP 128/60
--- NOTE | 2019-07-09 16:14 | NUR ---
12 pm scan and 1600 scan both under 400ml.
--- NOTE | 2019-07-09 18:10 | NUR ---
Patient in room PCU 3008. I have received report from DUSTIN Leija and had the opportunity to ask questions and assume patient care.
--- NOTE | 2019-07-09 18:18 | NUR ---
Problems reprioritized. Patient report given, questions answered & plan of care reviewed with DUSTIN Restrepo.
--- NOTE | 2019-07-09 18:52 | NUR ---
PATIENTS FAMILY AND THE PHYSICAL THERAPIST HAD A HEATED DISAGREEMENT TODAY REGARDING CARE OF THE PATIENT. PER FAMILY MEMBER THE PT WAS VERY RUDE AND ABRUPT WITH HER FAMILY. LOUANN FOSTER WAS CALLED TO ASSIST WITH THE SITUATION. LOUANN FOSTER SPOKE WITH FAMILY AND PT PERSONNEL. I WILL TALK WITH THE DIRECTOR OF THE PCU UNIT ON WEDNESDAY REGARDING THE ISSUE.
[2019-07-09 19:00] VITALS: BP 141/64
[2019-07-09] MEDS: tamsulosin 0.4mg capsule PO SCH (20:48)
[2019-07-09 23:00] VITALS: BP 120/55
--- NOTE | 2019-07-10 00:16 | NUR ---
Patient has 150 in bladder. No straight cath needed Addendum: 07/10/19 at 0017 by Kaye Tian RN Amended: Links added.
--- NOTE | 2019-07-10 00:24 | NUR ---
Spoke with October about patient's 02 sat at 92% on 5 L[address] She ordered to place patient on highflow NC at 7 L amd she is satting at 94% at this time. Will continue to monitor.
[2019-07-10 03:00] VITALS: BP 119/59
[2019-07-10 06:00] VITALS: BP 98/52
--- NOTE | 2019-07-10 06:47 | NUR ---
Problems reprioritized. Patient report given, questions answered & plan of care reviewed with DUSTIN Jimenes.
--- NOTE | 2019-07-10 06:47 | NUR ---
Patient in room PCU 3008. I have received report from Kaye CHAN and had the opportunity to ask questions and assume patient care. Patient awake and up to chair. Sitter present bedside. All immediate needs met at this time.
[2019-07-10 06:50] LABS: BASOPHILS % (AUTO) 0.2 % (0-1); EOSINOPHILS # (AUTO) 0.1 X10'3 (0-0.9); EOSINOPHILS % (AUTO) 0.6 % (0-6); HEMATOCRIT 24.9 % (35.0-45.0); HEMOGLOBIN 8.5 g/dl (12.0-16.0); LYMPHOCYTES # (AUTO) 0.7 X10'3 (1.1-4.8); LYMPHOCYTES % (AUTO) 6.4 % (21-51); MEAN CORPUSCULAR HEMOGLOBIN 27.3 PG (27.0-31.0); MEAN CORPUSCULAR VOLUME 80.3 FL (78-98); MEAN PLATELET VOLUME 9.7 FL (7.4-10.4); MONOCYTES # (AUTO) 1.2 X10'3 (0-0.9); NEUTROPHILS # (AUTO) 8.8 X10'3 (1.8-7.7); NEUTROPHILS % (AUTO) 81.8 % (42-75); PLATELET COUNT 141 X10'3 (140-440); RED CELL DISTRIBUTION WIDTH 14.9 % (11.5-14.5); WHITE BLOOD COUNT 10.8 X10'3 (4.5-11.0)
[2019-07-10 07:04] LABS: ALANINE AMINOTRANSFERASE 51 U/L (12-78); ALBUMIN 2.4 G/DL (3.4-5.0); ALBUMIN/GLOBULIN RATIO 0.5 (1.1-1.5); ALKALINE PHOSPHATASE 88 IU/L (46-116); ANION GAP 13 (8-16); ASPARTATE AMINO TRANSFERASE 18 U/L (10-37); BILIRUBIN,TOTAL 0.7 MG/DL (0.1-1.0); BLOOD UREA NITROGEN 63 MG/DL (7-18); BUN/CREATININE RATIO 29.6 (6.6-38.0); CHLORIDE 92 MMOL/L (99-107); CREATININE 2.13 MG/DL (0.40-0.90); GLUCOSE 190 MG/DL (70-104); MAGNESIUM 2.7 MG/DL (1.5-2.4); PHOSPHORUS 5.1 MG/DL (2.3-4.5); POTASSIUM 3.3 MMOL/L (3.5-5.1); SODIUM 133 MMOL/L (135-145); TOTAL PROTEIN 6.9 G/DL (6.4-8.2); eGFR 26 ML/MIN
--- NOTE | 2019-07-10 09:00 | NUR ---
Bladder scanned with 282ml, will continue to monitor. Patient states no urge to void.
[2019-07-10] MEDS: amLODIPine 5mg tablet PO SCH (09:32)
[2019-07-10] MEDS: pantoprazole 40mg Tablet.DR PO SCH (09:32)
[2019-07-10] MEDS: tamsulosin 0.4mg capsule PO SCH ×2 (09:32→21:29)
[2019-07-10] MEDS: losartan 50mg tablet PO SCH (09:32)
[2019-07-10] MEDS: hydrALAZINE 25 MG tablet PO PRN (09:32)
[2019-07-10] MEDS: clindamycin 150mg capsule PO SCH ×2 (09:33→21:30)
[2019-07-10] MEDS: memantine 5mg tablet PO SCH ×2 (09:33→21:30)
[2019-07-10] MEDS: lactobacillus rhamnosus 10,000 MMU CELLS/CAPSULE PO SCH ×2 (09:33→21:29)
[2019-07-10] MEDS: donepezil 5mg tablet PO SCH (09:33)
[2019-07-10] MEDS: atorvastatin 10mg tablet PO SCH (09:33)
[2019-07-10] MEDS: ferrous sulfate 325mg tablet PO SCH (09:33)
[2019-07-10] MEDS: multivitamins, therapeutics tablet PO SCH (09:33)
[2019-07-10] MEDS: levoTHYROXINE 88mcg tablet PO SCH (09:34)
[2019-07-10] MEDS: HYDROcodone/acetaminophen 5mg/325mg tablet PO PRN (09:34)
[2019-07-10] MEDS: docusate sod 100mg capsule PO SCH ×2 (09:34→21:31)
[2019-07-10] MEDS: heparin, porcine 5000 units/ml vial SQ SCH ×2 (09:35→21:33)
[2019-07-10] MEDS: HYDROchlorothiazide 12.5mg capsule PO SCH (09:54)
[2019-07-10 11:00] VITALS: BP 108/53
--- NOTE | 2019-07-10 11:29 | NUR ---
reassessment: Pt PO 25% avg meals past 5 days not meeting needs. 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 Sitter present encouraging PO. RD d/w RN regarding advancement to regular diet per MD approval given low PO. Ensure Enlive BIDBD added pending MD verification prior to sending on trays. Ensure pudding added at lunches; dietary notified. Na 133 placed on 700ml dietary fluid-restriction in addition to heart healthy diet on hydrochlorothiazide. Worsening acute renal failure w/ urinary retention per MD note. LBM 07/09 receiving colace. Will monitor for additional nutrition needs this admit. IF prolonged low PO greater than 7 days may require corpak to meet nutrition needs. Recommendations: 1) advance to regular diet per MD given poor PO hx 2) Encourage PO intake 3) Ensure Enlive BIDBD pending MD verification prior to sending; ensure pudding w/ lunches 4) Routine bowel care 5) IF low PO persists 7 days or greater consider alternative nutrition to meet needs 6) Weekly wts Addendum: 07/10/19 at [address] Amended: Links added.
--- NOTE | 2019-07-10 14:00 | NUR ---
Bladder scanned patient per MD orders. 636ml shown on bladder scanner. Straight cathed and received 325ml aishwarya color with cloudiness, when I retracted the catheter out, sediment was in the catheter tubing. Patient tolerated well.
[2019-07-10 15:00] VITALS: BP 117/56
[2019-07-10] MEDS ORDERED: lactose-reduced food (Ensure Enlive) - 237ml bottle PO SCH (17:30)
--- NOTE | 2019-07-10 18:21 | NUR ---
Problems reprioritized. Patient report given, questions answered & plan of care reviewed with Kaye CHAN.
--- NOTE | 2019-07-10 18:42 | NUR ---
Patient in room PCU 3008. I have received report from DUSTIN Jimenes and had the opportunity to ask questions and assume patient care.
--- NOTE | 2019-07-10 18:43 | NUR ---
Problems reprioritized. Patient report given, questions answered & plan of care reviewed with Kaye CHAN. Patient stable at transfer of care.
[2019-07-10 19:00] VITALS: BP 119/56
--- NOTE | 2019-07-10 22:18 | NUR ---
Bladder scan shows 175, straight cath not needed yet Addendum: 07/10/19 at 2219 by Kaye Tian RN Amended: Links added.
[2019-07-10 23:00] VITALS: BP 125/59
[2019-07-10] MEDS: nystatin 500,000 unit/5ML UD oral suspension PO SCH (23:54)
[2019-07-10] MEDS: POTASSIUM BICARB 20meq eff tab 20 MEQ TABLET.EFF PO SCH (23:55)
--- NOTE | 2019-07-11 01:23 | NUR ---
Called October, OSTRICH FARMER and informed her that patient's morning k was 3.3. She gave me orders for k effervescent. Informed her that patient seems to have thrush, Nystatin oral solution ordered and administered. Informed Ventura that swelling in patient's arm seems to have increased. She stated she will order a scan and we should measure it. Measurements are at 12 DENNY, 11.5 LLA
[2019-07-11 03:00] VITALS: BP 127/59
[2019-07-11] MEDS: POTASSIUM BICARB 20meq eff tab 20 MEQ TABLET.EFF PO SCH ×2 (04:32→08:31)
--- NOTE | 2019-07-11 05:38 | NUR ---
Measurements of arm bi lat aprrox 0000 DENNY 12 IN LLA 11.5 0500 DENNY 12.5 LLA 11.5 JULY 13 RLA 11.5 Ventura PERMANENT MOLD SUPERVISOR is going to scan both arms to rule out clotting.
--- NOTE | 2019-07-11 05:40 | NUR ---
bladder scan showed 400 mL, when straight cath performed only 200 out with much sediment clogging tip of catheter.
[2019-07-11 05:45] LABS: BASOPHILS # (AUTO) 0.1 X10'3 (0-0.2); BASOPHILS % (AUTO) 0.5 % (0-1); EOSINOPHILS # (AUTO) 0.1 X10'3 (0-0.9); EOSINOPHILS % (AUTO) 0.9 % (0-6); HEMATOCRIT 25.7 % (35.0-45.0); HEMOGLOBIN 8.7 g/dl (12.0-16.0); LYMPHOCYTES # (AUTO) 0.6 X10'3 (1.1-4.8); LYMPHOCYTES % (AUTO) 5.9 % (21-51); MEAN CORPUSCULAR HEMOGLOBIN 27.1 PG (27.0-31.0); MEAN CORPUSCULAR VOLUME 79.7 FL (78-98); MEAN PLATELET VOLUME 10.3 FL (7.4-10.4); MONOCYTES # (AUTO) 1.2 X10'3 (0-0.9); MONOCYTES % (AUTO) 11.2 % (2-12); NEUTROPHILS # (AUTO) 8.5 X10'3 (1.8-7.7); NEUTROPHILS % (AUTO) 81.5 % (42-75); PLATELET COUNT 156 X10'3 (140-440); RED BLOOD COUNT 3.22 X10'6 (4.20-5.60); RED CELL DISTRIBUTION WIDTH 15.2 % (11.5-14.5); WHITE BLOOD COUNT 10.4 X10'3 (4.5-11.0)
[2019-07-11 06:00] VITALS: BP 134/62
--- NOTE | 2019-07-11 06:35 | NUR ---
Problems reprioritized. Patient report given, questions answered & plan of care reviewed with DUSTIN Jimenes.
--- NOTE | 2019-07-11 06:49 | NUR ---
Patient in room PCU 3008. I have received report from Kaye CHAN and had the opportunity to ask questions and assume patient care. Patient asleep and in no acute distress. 7L high flow O2. Sitter bedside.
--- NOTE | 2019-07-11 06:49 | NUR ---
Patient in room PCU 3008. I have received report from Kaye CHAN and had the opportunity to ask questions and assume patient care.
[2019-07-11 07:12] LABS: ALANINE AMINOTRANSFERASE 50 U/L (12-78); ALBUMIN 2.5 G/DL (3.4-5.0); ALBUMIN/GLOBULIN RATIO 0.5 (1.1-1.5); ALKALINE PHOSPHATASE 96 IU/L (46-116); ANION GAP 16 (8-16); ASPARTATE AMINO TRANSFERASE 22 U/L (10-37); BILIRUBIN,TOTAL 0.7 MG/DL (0.1-1.0); BLOOD UREA NITROGEN 80 MG/DL (7-18); BUN/CREATININE RATIO 31.3 (6.6-38.0); CHLORIDE 91 MMOL/L (99-107); CREATININE 2.56 MG/DL (0.40-0.90); GLUCOSE 171 MG/DL (70-104); MAGNESIUM 3.1 MG/DL (1.5-2.4); PHOSPHORUS 5.5 MG/DL (2.3-4.5); POTASSIUM 3.5 MMOL/L (3.5-5.1); SODIUM 134 MMOL/L (135-145); TOTAL CARBON DIOXIDE 26.7 MMOL/L (24-32); TOTAL PROTEIN 7.3 G/DL (6.4-8.2); eGFR 21 ML/MIN
[2019-07-11] MEDS: memantine 5mg tablet PO SCH ×2 (08:32→20:35)
[2019-07-11] MEDS: lactobacillus rhamnosus 10,000 MMU CELLS/CAPSULE PO SCH ×2 (08:32→20:35)
[2019-07-11] MEDS: donepezil 5mg tablet PO SCH (08:32)
[2019-07-11] MEDS: clindamycin 150mg capsule PO SCH ×2 (08:32→20:35)
[2019-07-11] MEDS: atorvastatin 10mg tablet PO SCH (08:32)
[2019-07-11] MEDS: ferrous sulfate 325mg tablet PO SCH (08:33)
[2019-07-11] MEDS: levoTHYROXINE 88mcg tablet PO SCH (08:33)
[2019-07-11] MEDS: heparin, porcine 5000 units/ml vial SQ SCH ×2 (08:33→20:37)
[2019-07-11] MEDS: pantoprazole 40mg Tablet.DR PO SCH (08:33)
[2019-07-11] MEDS: HYDROchlorothiazide 12.5mg capsule PO SCH (08:33)
[2019-07-11] MEDS: docusate sod 100mg capsule PO SCH ×2 (08:33→20:35)
[2019-07-11] MEDS: nystatin 500,000 unit/5ML UD oral suspension PO SCH ×3 (08:33→20:37)
[2019-07-11] MEDS: multivitamins, therapeutics tablet PO SCH (08:33)
--- NOTE | 2019-07-11 09:30 | NUR ---
Bladder scanned patient, showed 242ml. Patient didn't complain of discomfort or have the urgency to void. Will continue to monitor.
[2019-07-11 11:00] VITALS: BP 125/60
--- NOTE | 2019-07-11 11:00 | NUR ---
Patient's family member, Sid came to hospital to retrieve 2 gold rings that were removed during NOC shift.
[2019-07-11] MEDS: amLODIPine 5mg tablet PO SCH (14:00)
[2019-07-11] MEDS: losartan 50mg tablet PO SCH (14:00)
[2019-07-11 15:00] VITALS: BP 133/63
--- NOTE | 2019-07-11 15:55 | NUR ---
Problems reprioritized. Patient report given, questions answered & plan of care reviewed with DUSTIN Layton. Patient stable at transfer of care.
--- NOTE | 2019-07-11 15:55 | NUR ---
Patient in room PCU 3008. I have received report from Yudy CHAN and had the opportunity to ask questions and assume patient care.
--- NOTE | 2019-07-11 16:00 | NUR ---
Bladder scanned patient, 389 ml in bladder. Patient had no urgency complaints; Will continue to monitor
[2019-07-11] MEDS ORDERED: traMADol 50MG tablet PO PRN (16:05)
[2019-07-11] MEDS ORDERED: acetaminophen 650mg rectal suppository RC PRN (16:05)
--- NOTE | 2019-07-11 16:10 | NUR ---
Per Dr Joaquin, ONLY continue with ordered PO Tramadol and Rectal Tylenol for pain. Patient has orders for swallow eval on 07/12; if patient does do well in swallow eval, will reevaluate new pain medication options. About to administer rectal Tylenol for pain.
--- NOTE | 2019-07-11 16:52 | NUR ---
I have received patient from Yudy RN, and agree with physical assessment charting per prior RN.
[2019-07-11 18:00] VITALS: BP 131/55
--- NOTE | 2019-07-11 18:13 | NUR ---
Orientee documentation: I have reviewed and agree with all interventions, assessments performed and documented by DUSTIN Willis. Orientee Medication Administration: For this medication-pass time frame, all medication were reviewed, dispensed, administered and documented per hospital policy by DUSTIN Willis.
--- NOTE | 2019-07-11 18:30 | NUR ---
Problems reprioritized. Patient report given, questions answered & plan of care reviewed with Kaye CHAN.
[2019-07-11] MEDS: HYDROcodone/acetaminophen 5mg/325mg tablet PO PRN ×2 (18:42→23:07)
[2019-07-11] MEDS: ondansetron/PF 4mg/2ml inj IV PRN (18:42)
--- NOTE | 2019-07-11 19:21 | NUR ---
Patient in room PCU 3008. I have received report from DUSTIN Layton and had the opportunity to ask questions and assume patient care.
[2019-07-11] MEDS: tamsulosin 0.4mg capsule PO SCH (20:36)
[2019-07-11 22:00] VITALS: BP 128/63
[2019-07-12 02:00] VITALS: BP 118/53
--- NOTE | 2019-07-12 02:30 | NUR ---
No straight cath necessary at this point. Bladder scanner shows 267 at 0200. Will bladder scan again at 0600. Addendum: 07/12/19 at 0515 by Kaye Tian RN Amended: Links added.
--- NOTE | 2019-07-12 03:16 | NUR ---
Patient had a coughing spelll around 2100 and coughed untill she gagged herself. She then threw up some of her medication.
[2019-07-12] MEDS: HYDROcodone/acetaminophen 5mg/325mg tablet PO PRN ×3 (04:33→20:39)
[2019-07-12 04:58] LABS: BASOPHILS # (AUTO) 0.1 X10'3 (0-0.2); BASOPHILS % (AUTO) 0.5 % (0-1); EOSINOPHILS # (AUTO) 0.2 X10'3 (0-0.9); EOSINOPHILS % (AUTO) 1.9 % (0-6); HEMOGLOBIN 8.3 g/dl (12.0-16.0); LYMPHOCYTES # (AUTO) 0.8 X10'3 (1.1-4.8); MEAN CORPUSCULAR HEMOGLOBIN 26.9 PG (27.0-31.0); MEAN CORPUSCULAR HGB CONC 33.3 g/dL (33.0-36.5); MEAN CORPUSCULAR VOLUME 80.8 FL (78-98); MEAN PLATELET VOLUME 9.3 FL (7.4-10.4); MONOCYTES # (AUTO) 1.4 X10'3 (0-0.9); MONOCYTES % (AUTO) 13.2 % (2-12); NEUTROPHILS # (AUTO) 8.3 X10'3 (1.8-7.7); NEUTROPHILS % (AUTO) 77.4 % (42-75); PLATELET COUNT 197 X10'3 (140-440); RED BLOOD COUNT 3.09 X10'6 (4.20-5.60); RED CELL DISTRIBUTION WIDTH 15.3 % (11.5-14.5); WHITE BLOOD COUNT 10.8 X10'3 (4.5-11.0)
[2019-07-12 05:32] LABS: ALANINE AMINOTRANSFERASE 51 U/L (12-78); ALBUMIN 2.4 G/DL (3.4-5.0); ALBUMIN/GLOBULIN RATIO 0.5 (1.1-1.5); ALKALINE PHOSPHATASE 104 IU/L (46-116); ANION GAP 12 (8-16); ASPARTATE AMINO TRANSFERASE 23 U/L (10-37); BILIRUBIN,TOTAL 0.5 MG/DL (0.1-1.0); BLOOD UREA NITROGEN 90 MG/DL (7-18); BUN/CREATININE RATIO 34.1 (6.6-38.0); CALCIUM 7.8 MG/DL (8.5-10.1); CHLORIDE 91 MMOL/L (99-107); CREATININE 2.64 MG/DL (0.40-0.90); GLUCOSE 171 MG/DL (70-104); MAGNESIUM 3.4 MG/DL (1.5-2.4); PHOSPHORUS 5.5 MG/DL (2.3-4.5); SODIUM 132 MMOL/L (135-145); TOTAL CARBON DIOXIDE 28.9 MMOL/L (24-32); eGFR 21 ML/MIN
--- NOTE | 2019-07-12 06:33 | NUR ---
Problems reprioritized. Patient report given, questions answered & plan of care reviewed with DUSTIN Jimenes.
--- NOTE | 2019-07-12 06:38 | NUR ---
Patient in room PCU 3008. I have received report from Kaye and had the opportunity to ask questions and assume patient care.
--- NOTE | 2019-07-12 06:39 | NUR ---
Patient in room PCU 3008. I have received report from Kaye CHAN and had the opportunity to ask questions and assume patient care. Patient awake in bed and in no acute distress. All immediate needs met at this time. Patient niece bedside.
[2019-07-12 07:00] VITALS: BP 123/52
[2019-07-12] MEDS: ondansetron/PF 4mg/2ml inj IV PRN ×2 (07:40→15:32)
[2019-07-12] MEDS: atorvastatin 10mg tablet PO SCH (07:41)
[2019-07-12] MEDS: HYDROchlorothiazide 12.5mg capsule PO SCH (07:41)
[2019-07-12] MEDS: ferrous sulfate 325mg tablet PO SCH (07:42)
[2019-07-12] MEDS: pantoprazole 40mg Tablet.DR PO SCH (07:42)
[2019-07-12] MEDS: lactobacillus rhamnosus 10,000 MMU CELLS/CAPSULE PO SCH ×2 (07:43→20:33)
[2019-07-12] MEDS: levoTHYROXINE 88mcg tablet PO SCH (07:43)
[2019-07-12] MEDS: multivitamins, therapeutics tablet PO SCH (07:44)
[2019-07-12] MEDS: donepezil 5mg tablet PO SCH (07:44)
[2019-07-12] MEDS: docusate sod 100mg capsule PO SCH ×2 (07:44→20:33)
[2019-07-12] MEDS: memantine 5mg tablet PO SCH ×2 (07:45→20:33)
[2019-07-12] MEDS: heparin, porcine 5000 units/ml vial SQ SCH ×2 (07:46→20:34)
[2019-07-12] MEDS: nystatin 500,000 unit/5ML UD oral suspension PO SCH ×3 (07:46→20:34)
[2019-07-12] MEDS: clindamycin 150mg capsule PO SCH ×2 (08:09→20:33)
[2019-07-12 11:00] VITALS: BP 132/56
[2019-07-12] MEDS: amLODIPine 5mg tablet PO SCH (13:12)
[2019-07-12] MEDS: losartan 50mg tablet PO SCH (13:13)
--- NOTE | 2019-07-12 13:32 | NUR ---
Assessed patients pacemaker site for staple removal per order from Agnes Jarrett. Noted the distal end of the incision not well approximated and the surrounding skin was soft. 7 kendrick intact. No signs and symptoms of infection noted. Normal bruising noted. Redressed pacemaker site. Per nursing judgement, will defer for Agnes Jarrett to assess tomorrow and proceed with removal.
[2019-07-12 15:00] VITALS: BP 111/59
--- NOTE | 2019-07-12 15:13 | NUR ---
Reassessment: Pt s/p BSS 07/[address] [place] to continue current diet as pt with no s/s aspiration. Patient's PO intake has further declined now documented with 0% PO intake. ONS still pending MD verification. D/w RN who states pt more alert this morning and with family visiting that is encouraging PO intake. Per RN pt eating a few bites of Ensure pudding and will discuss ONS with MD. Given continuous low PO intake pt would benefit from TF to meet nutrient needs. LBM 07/12. Will continue to follow. Recommendations: 1) advance to regular diet per MD given poor PO hx 2) Encourage PO intake 3) Ensure Enlive BIDBD pending MD verification prior to sending; ensure pudding w/ lunches 4) Routine bowel care 5) IF low PO persists 7 days or greater consider alternative nutrition to meet needs 6) Weekly wts Addendum: 07/12/19 at [address] Amended: Links added.
--- NOTE | 2019-07-12 16:00 | NUR ---
Bladder scanned patient with 150 mL's in bladder. No straight catheterization needed. Patient denies urinary urgency. Will monitor for s/sx of bladder distention.
--- NOTE | 2019-07-12 18:41 | NUR ---
Patient in room PCU 3008. I have received report from Yudy CHAN and Angi RN and had the opportunity to ask questions and assume patient care.
--- NOTE | 2019-07-12 18:45 | NUR ---
Problems reprioritized. Patient report given, questions answered & plan of care reviewed with Bernie CHAN. Patient stable at transfer of care.
--- NOTE | 2019-07-12 18:48 | NUR ---
Orientee documentation: I have reviewed and agree with all interventions, assessments performed and documented by Angi CHAN. Orient[place] Medication Administration: For this medication-pass time frame, all medication were reviewed, dispensed, administered and documented per hospital policy by Angi CHAN.
[2019-07-12 19:00] VITALS: BP 133/59
--- NOTE | 2019-07-12 20:15 | NUR ---
Patient was bladder scanned with the highest volume reading 329mls so straight cath not needed at this time. Will reassess again at 1200. Addendum: 07/12/19 at 2048 by Bernie Morrow RN Amended: Links added.
[2019-07-12] MEDS: tamsulosin 0.4mg capsule PO SCH (20:33)
[2019-07-12 22:00] VITALS: BP 116/43
--- NOTE | 2019-07-13 00:18 | NUR ---
Patient has not voided since last straight cath. She was just bladder scanned with the highest volume reading 354mls. Straight cath not indicated at this time for volume <400mls. Will reassess in four hours. Addendum: 07/13/19 at 0019 by Bernie Morrow RN Amended: Links added.
[2019-07-13 02:00] VITALS: BP 114/47
--- NOTE | 2019-07-13 04:00 | NUR ---
Highest volume read on bladder scanner is 366mls. No straight cath indicated at this time since volume is not greater than 400mls. Patient did have some incontinence since the previous bladder scan. Addendum: 07/13/19 at 0436 by Bernie Morrow RN Amended: Links added.
[2019-07-13] MEDS: HYDROcodone/acetaminophen 5mg/325mg tablet PO PRN (05:17)
--- NOTE | 2019-07-13 05:33 | NUR ---
Orientee documentation: I have reviewed and agree with all interventions, assessments performed and documented by Alfred CHAN. Addendum: 07/13/19 at 0536 by Bernie Morrow RN Orientee Medication Administration: For this medication-pass time frame, all medication were reviewed, dispensed, administered and documented per hospital policy by Alfred CHAN.
[2019-07-13 06:00] VITALS: BP 110/44
[2019-07-13 06:01] LABS: BASOPHILS # (AUTO) 0.1 X10'3 (0-0.2); BASOPHILS % (AUTO) 0.5 % (0-1); EOSINOPHILS # (AUTO) 0.5 X10'3 (0-0.9); EOSINOPHILS % (AUTO) 4.1 % (0-6); HEMOGLOBIN 7.9 g/dl (12.0-16.0); LYMPHOCYTES # (AUTO) 0.7 X10'3 (1.1-4.8); LYMPHOCYTES % (AUTO) 5.9 % (21-51); MEAN CORPUSCULAR HEMOGLOBIN 26.6 PG (27.0-31.0); MEAN CORPUSCULAR VOLUME 80.8 FL (78-98); MEAN PLATELET VOLUME 9.4 FL (7.4-10.4); MONOCYTES # (AUTO) 1.5 X10'3 (0-0.9); MONOCYTES % (AUTO) 12.6 % (2-12); NEUTROPHILS # (AUTO) 9.5 X10'3 (1.8-7.7); NEUTROPHILS % (AUTO) 76.9 % (42-75); PLATELET COUNT 202 X10'3 (140-440); RED BLOOD COUNT 2.97 X10'6 (4.20-5.60); RED CELL DISTRIBUTION WIDTH 15.1 % (11.5-14.5); WHITE BLOOD COUNT 12.3 X10'3 (4.5-11.0)
[2019-07-13 06:35] LABS: ALANINE AMINOTRANSFERASE 48 U/L (12-78); ALBUMIN 2.5 G/DL (3.4-5.0); ALBUMIN/GLOBULIN RATIO 0.6 (1.1-1.5); ALKALINE PHOSPHATASE 111 IU/L (46-116); ANION GAP 9 (8-16); ASPARTATE AMINO TRANSFERASE 20 U/L (10-37); BILIRUBIN,TOTAL 0.5 MG/DL (0.1-1.0); BLOOD UREA NITROGEN 103 MG/DL (7-18); BUN/CREATININE RATIO 34.2 (6.6-38.0); CALCIUM 7.4 MG/DL (8.5-10.1); CHLORIDE 92 MMOL/L (99-107); CREATININE 3.01 MG/DL (0.40-0.90); GLUCOSE 150 MG/DL (70-104); MAGNESIUM 3.4 MG/DL (1.5-2.4); PHOSPHORUS 5.8 MG/DL (2.3-4.5); POTASSIUM 3.9 MMOL/L (3.5-5.1); SODIUM 132 MMOL/L (135-145); TOTAL CARBON DIOXIDE 31.5 MMOL/L (24-32); TOTAL PROTEIN 6.9 G/DL (6.4-8.2); eGFR 18 ML/MIN
--- NOTE | 2019-07-13 06:42 | NUR ---
Problems reprioritized. Patient report given, questions answered & plan of care reviewed with Herbert CHAN.
--- NOTE | 2019-07-13 06:49 | NUR ---
Patient in room PCU 3008. I have received report from Bernie CHAN and had the opportunity to ask questions and assume patient care.
[2019-07-13] MEDS: pantoprazole 40mg Tablet.DR PO SCH (08:01)
[2019-07-13] MEDS: atorvastatin 10mg tablet PO SCH (08:01)
[2019-07-13] MEDS: multivitamins, therapeutics tablet PO SCH (08:01)
[2019-07-13] MEDS: clindamycin 150mg capsule PO SCH ×2 (08:01→19:52)
[2019-07-13] MEDS: heparin, porcine 5000 units/ml vial SQ SCH ×2 (08:01→19:53)
[2019-07-13] MEDS: levoTHYROXINE 88mcg tablet PO SCH (08:01)
[2019-07-13] MEDS: ferrous sulfate 325mg tablet PO SCH (08:01)
[2019-07-13] MEDS: docusate sod 100mg capsule PO SCH ×2 (08:01→19:53)
[2019-07-13] MEDS: lactobacillus rhamnosus 10,000 MMU CELLS/CAPSULE PO SCH ×2 (08:01→19:53)
[2019-07-13] MEDS: nystatin 500,000 unit/5ML UD oral suspension PO SCH ×3 (08:02→21:55)
[2019-07-13] MEDS: donepezil 5mg tablet PO SCH (08:02)
[2019-07-13] MEDS: HYDROchlorothiazide 12.5mg capsule PO SCH (08:02)
[2019-07-13] MEDS: memantine 5mg tablet PO SCH ×2 (08:02→19:52)
[2019-07-13 11:00] VITALS: BP 127/59
[2019-07-13] MEDS: amLODIPine 5mg tablet PO SCH (13:48)
[2019-07-13] MEDS: losartan 50mg tablet PO SCH (13:48)
--- NOTE | 2019-07-13 13:50 | NUR ---
Afternoon meds administered at this time per primary RN request, pt able to swallow medications without difficulty, no evidence of pocketing.
--- NOTE | 2019-07-13 14:33 | NUR ---
Pacemaker Kendrick removed per md order, 7 kendrick in total, removed with no issues pt denies pain/discomfort, no drainage or odor noted, wound is well approximated, clean dry dressing in place
[2019-07-13 15:00] VITALS: BP 132/51
--- NOTE | 2019-07-13 15:23 | NUR ---
received orders that it is ok to keep PIV past protocol date if asymptomatic per Dr. Joaquin
[2019-07-13] MEDS ORDERED: FLU VACC QS2019-20 36MOS UP/PF 60 MCG/0.5 ML SYRINGE IMVAC ONE (15:30)
--- NOTE | 2019-07-13 18:30 | NUR ---
Patient in room PCU 3008. I have received report from DUSTIN Godinez and had the opportunity to ask questions and assume patient care. Patient asleep for bedside report and stable at this time. Sitter in room. 8L NC high flow and 20 G in L FA saline locked. Will continue to monitor closely.
--- NOTE | 2019-07-13 18:50 | NUR ---
Problems reprioritized. Patient report given, questions answered & plan of care reviewed with Fer CHAN.
[2019-07-13 19:00] VITALS: BP 145/53
[2019-07-13] MEDS: HYDROcodone/acetaminophen 10/325mg tab PO PRN (19:52)
[2019-07-13] MEDS: tamsulosin 0.4mg capsule PO SCH (21:55)
[2019-07-13 23:00] VITALS: BP 122/49
[2019-07-14] VITALS (7 sets, daily range): BP systolic 118–143; BP diastolic 47–62
[2019-07-14 05:01] LABS: BASOPHILS % (AUTO) 0.3 % (0-1); EOSINOPHILS # (AUTO) 0.6 X10'3 (0-0.9); EOSINOPHILS % (AUTO) 4.9 % (0-6); HEMATOCRIT 25.5 % (35.0-45.0); HEMOGLOBIN 8.4 g/dl (12.0-16.0); LYMPHOCYTES # (AUTO) 0.6 X10'3 (1.1-4.8); MEAN CORPUSCULAR HEMOGLOBIN 26.5 PG (27.0-31.0); MEAN CORPUSCULAR HGB CONC 32.8 g/dL (33.0-36.5); MEAN CORPUSCULAR VOLUME 80.7 FL (78-98); MEAN PLATELET VOLUME 8.9 FL (7.4-10.4); MONOCYTES # (AUTO) 1.1 X10'3 (0-0.9); MONOCYTES % (AUTO) 8.9 % (2-12); NEUTROPHILS # (AUTO) 9.8 X10'3 (1.8-7.7); NEUTROPHILS % (AUTO) 80.9 % (42-75); PLATELET COUNT 223 X10'3 (140-440); RED BLOOD COUNT 3.16 X10'6 (4.20-5.60); RED CELL DISTRIBUTION WIDTH 15.3 % (11.5-14.5); WHITE BLOOD COUNT 12.1 X10'3 (4.5-11.0)
[2019-07-14 05:34] LABS: ALANINE AMINOTRANSFERASE 51 U/L (12-78); ALBUMIN 2.3 G/DL (3.4-5.0); ALBUMIN/GLOBULIN RATIO 0.5 (1.1-1.5); ALKALINE PHOSPHATASE 113 IU/L (46-116); ANION GAP 8 (8-16); ASPARTATE AMINO TRANSFERASE 26 U/L (10-37); BILIRUBIN,TOTAL 0.5 MG/DL (0.1-1.0); BLOOD UREA NITROGEN 102 MG/DL (7-18); BUN/CREATININE RATIO 38.6 (6.6-38.0); CALCIUM 7.7 MG/DL (8.5-10.1); CHLORIDE 91 MMOL/L (99-107); CREATININE 2.64 MG/DL (0.40-0.90); GLUCOSE 163 MG/DL (70-104); MAGNESIUM 3.6 MG/DL (1.5-2.4); PHOSPHORUS 4.6 MG/DL (2.3-4.5); POTASSIUM 3.8 MMOL/L (3.5-5.1); SODIUM 130 MMOL/L (135-145); TOTAL CARBON DIOXIDE 30.9 MMOL/L (24-32); TOTAL PROTEIN 6.7 G/DL (6.4-8.2); eGFR 21 ML/MIN
--- NOTE | 2019-07-14 06:19 | NUR ---
Problems reprioritized. Patient report given, questions answered & plan of care reviewed with DUSTIN Godinez.
--- NOTE | 2019-07-14 06:46 | NUR ---
Patient in room PCU 3008. I have received report from Fer CHAN and had the opportunity to ask questions and assume patient care.
[2019-07-14] MEDS: nystatin 500,000 unit/5ML UD oral suspension PO SCH ×3 (08:11→20:49)
[2019-07-14] MEDS: docusate sod 100mg capsule PO SCH ×2 (08:12→20:47)
[2019-07-14] MEDS: ferrous sulfate 325mg tablet PO SCH (08:12)
[2019-07-14] MEDS: multivitamins, therapeutics tablet PO SCH (08:12)
[2019-07-14] MEDS: lactobacillus rhamnosus 10,000 MMU CELLS/CAPSULE PO SCH ×2 (08:12→20:47)
[2019-07-14] MEDS: atorvastatin 10mg tablet PO SCH (08:12)
[2019-07-14] MEDS: HYDROchlorothiazide 12.5mg capsule PO SCH (08:12)
[2019-07-14] MEDS: pantoprazole 40mg Tablet.DR PO SCH (08:12)
[2019-07-14] MEDS: heparin, porcine 5000 units/ml vial SQ SCH ×2 (08:12→20:47)
[2019-07-14] MEDS: clindamycin 150mg capsule PO SCH (08:12)
[2019-07-14] MEDS: levoTHYROXINE 88mcg tablet PO SCH (08:13)
[2019-07-14] MEDS: memantine 5mg tablet PO SCH ×2 (08:13→20:47)
[2019-07-14] MEDS: donepezil 5mg tablet PO SCH (08:13)
--- NOTE | 2019-07-14 08:31 | NUR ---
I have reviewed and agree with all medications administered and interventions performed by [facility] Student Marshal Horner Addendum: 07/14/19 at 0832 by Aline Santillan RT Amended: Links added.
[2019-07-14] MEDS: HYDROcodone/acetaminophen 5mg/325mg tablet PO PRN (11:08)
--- NOTE | 2019-07-14 13:30 | NUR ---
Pt c/o itchy back, notified , bendadryl cream ordered per MD
[2019-07-14] MEDS: losartan 50mg tablet PO SCH (14:08)
[2019-07-14] MEDS: amLODIPine 5mg tablet PO SCH (14:08)
[2019-07-14 17:34] LABS: CLARITY,URINE CLOUDY (Clear); COLOR,URINE YELLOW (Yellow); GLUCOSE, URINE NEGATIVE (Neg); KETONES,URINE NEGATIVE (Neg); LEUKOCYTE ESTERASE ,URINE SMALL (Neg); NITRITES, URINE NEGATIVE (Neg); OCCULT BLOOD,URINE TRACE-INTACT (Neg); PH,URINE 5.5 (4.8-8.0); PROTEIN,URINE NEGATIVE (Neg); UROBILINOGEN,URINE 0.2 E.U/dL (0.2-1.0)
[2019-07-14 17:40] LABS: UA COLLECTION TYPE STRAIGHT CATH
--- NOTE | 2019-07-14 18:12 | NUR ---
Problems reprioritized. Patient report given, questions answered & plan of care reviewed with Yael CHAN.
[2019-07-14 18:26] LABS: SQUAMOUS EPITHELIAL CELL,UR MANY /LPF (FEW)
[2019-07-14 18:29] LABS: WBC CLUMPS,URINE FEW /HPF (NEGATIVE)
[2019-07-14 18:30] LABS: BACTERIA,URINE 4+ /HPF (Neg); WBC,URINE TNTC /HPF (0-4)
[2019-07-14] MEDS: tamsulosin 0.4mg capsule PO SCH (20:47)
--- NOTE | 2019-07-15 00:38 | NUR ---
Highest volume read on bladder scanner is 710 mls. Straight cath was indicated at this time since volume is greater than 400mls. An output of 600 mls was measured and recorded.
[2019-07-15 03:00] VITALS: BP 132/54
[2019-07-15 06:00] VITALS: BP 124/47
[2019-07-15 06:26] LABS: BASOPHILS % (AUTO) 0.3 % (0-1); EOSINOPHILS # (AUTO) 0.7 X10'3 (0-0.9); EOSINOPHILS % (AUTO) 5.6 % (0-6); HEMATOCRIT 27.6 % (35.0-45.0); LYMPHOCYTES # (AUTO) 0.6 X10'3 (1.1-4.8); LYMPHOCYTES % (AUTO) 5.1 % (21-51); MEAN CORPUSCULAR HEMOGLOBIN 26.5 PG (27.0-31.0); MEAN CORPUSCULAR HGB CONC 32.7 g/dL (33.0-36.5); MEAN CORPUSCULAR VOLUME 81.1 FL (78-98); MEAN PLATELET VOLUME 8.8 FL (7.4-10.4); MONOCYTES % (AUTO) 7.9 % (2-12); NEUTROPHILS # (AUTO) 10.1 X10'3 (1.8-7.7); NEUTROPHILS % (AUTO) 81.1 % (42-75); PLATELET COUNT 264 X10'3 (140-440); RED BLOOD COUNT 3.41 X10'6 (4.20-5.60); RED CELL DISTRIBUTION WIDTH 15.3 % (11.5-14.5); WHITE BLOOD COUNT 12.5 X10'3 (4.5-11.0)
--- NOTE | 2019-07-15 06:26 | NUR ---
Problems reprioritized. Patient report given, questions answered & plan of care reviewed with DUSTIN Godinez.
[2019-07-15 06:49] LABS: ALANINE AMINOTRANSFERASE 46 U/L (12-78); ALBUMIN 2.4 G/DL (3.4-5.0); ALBUMIN/GLOBULIN RATIO 0.5 (1.1-1.5); ALKALINE PHOSPHATASE 109 IU/L (46-116); ANION GAP 9 (8-16); ASPARTATE AMINO TRANSFERASE 22 U/L (10-37); BILIRUBIN,TOTAL 0.6 MG/DL (0.1-1.0); BLOOD UREA NITROGEN 90 MG/DL (7-18); BUN/CREATININE RATIO 40.5 (6.6-38.0); CHLORIDE 92 MMOL/L (99-107); CREATININE 2.22 MG/DL (0.40-0.90); GLUCOSE 149 MG/DL (70-104); MAGNESIUM 3.6 MG/DL (1.5-2.4); PHOSPHORUS 3.5 MG/DL (2.3-4.5); POTASSIUM 3.8 MMOL/L (3.5-5.1); SODIUM 133 MMOL/L (135-145); TOTAL PROTEIN 6.8 G/DL (6.4-8.2); eGFR 25 ML/MIN
[2019-07-15] MEDS: HYDROchlorothiazide 12.5mg capsule PO SCH (08:16)
[2019-07-15] MEDS: atorvastatin 10mg tablet PO SCH (08:16)
[2019-07-15] MEDS: levoTHYROXINE 88mcg tablet PO SCH (08:16)
[2019-07-15] MEDS: lactobacillus rhamnosus 10,000 MMU CELLS/CAPSULE PO SCH ×2 (08:16→20:02)
[2019-07-15] MEDS: pantoprazole 40mg Tablet.DR PO SCH (08:16)
[2019-07-15] MEDS: docusate sod 100mg capsule PO SCH ×2 (08:16→20:02)
[2019-07-15] MEDS: ferrous sulfate 325mg tablet PO SCH (08:16)
[2019-07-15] MEDS: donepezil 5mg tablet PO SCH (08:16)
[2019-07-15] MEDS: multivitamins, therapeutics tablet PO SCH (08:16)
[2019-07-15] MEDS: nystatin 500,000 unit/5ML UD oral suspension PO SCH ×3 (08:17→20:14)
[2019-07-15] MEDS: heparin, porcine 5000 units/ml vial SQ SCH ×2 (08:17→20:03)
[2019-07-15] MEDS: memantine 5mg tablet PO SCH ×2 (08:17→20:02)
[2019-07-15 08:23] LABS: PLATELET ESTIMATE NORMAL; TOTAL CELLS COUNTED 100
[2019-07-15 08:26] LABS: ELLIPTOCYTES FEW
[2019-07-15 08:27] LABS: STOMATOCYTES FEW
[2019-07-15] MEDS: diphenhydrAMINE 2%/zinc acetate cream TP PRN ×2 (08:29→14:23)
--- NOTE | 2019-07-15 08:54 | NUR ---
Pt rash to back has not improved since starting Benadryl cream and has now began to scatter throughout body, [place] POLICE WORKER notified and she will come and evaluate pt, no new orders at this time.
[2019-07-15 11:00] VITALS: BP 124/45
[2019-07-15] MEDS: bethanechol 10mg tablet PO SCH ×2 (12:25→17:13)
--- NOTE | 2019-07-15 13:45 | NUR ---
Sussy Underwood at bedside to evaluate rash. Per CREAM SEPARATOR OPERATOR, will order steroid for rash and benadryl at night. Also requesting cardiac chair to assist patient to a better seated position to improve breathing as well as give rash on back some air flow. PT notified, will bring chair for patient.
[2019-07-15] MEDS ORDERED: methylPREDNISolone sod succ 125mg/2ml vial IV ONE (14:05)
[2019-07-15] MEDS: losartan 50mg tablet PO SCH (14:21)
[2019-07-15] MEDS: amLODIPine 5mg tablet PO SCH (14:22)
[2019-07-15 15:00] VITALS: BP 132/49
--- NOTE | 2019-07-15 16:58 | NUR ---
F/u: Pt PO continues to be poor 25% avg past 12 days. DIANE d/w RN regarding supplemental alternative nutrition needs given prolonged low PO; RN agrees to d/w SHELL FREEZING MACHINE OPERATOR following pt today. Pt regressed r/t terrible UTI per MD note. LBM 10 receiving colace and iron. Ensure pudding w/ lunches. TF recs below in case nutrition support started. Would also benefit from liberalization to regular diet given low PO hx. Oleg 13 w/ skin intact. Will continue to monitor. Recommendations: 1) advance to regular diet per MD given poor PO hx 2) Encourage PO intake 3) Ensure Enlive BIDBD pending MD verification prior to sending; ensure pudding w/ lunches 4) Routine bowel care 5) IF MD approves; would benefit from supplemental NGTF using Jevity 1.2 at 60 ml/hr goal; to provide 1440ml fluid, 1728kcals, 1166ml free water, and 80g protein. Initiate at 20ml/hr and advance 20ml Q8 to goal as tolerated. 6) Weekly wts Addendum: 07/15/19 at [address] Amended: Links added.
--- NOTE | 2019-07-15 17:27 | NUR ---
Bladder scanned pt q 4 hours per md order for urinary retention and for each reading it did not show the need to straight cath, new orders to start urecholine to start today for retention, will continue to monitor.
[2019-07-15 18:00] VITALS: BP 150/53
--- NOTE | 2019-07-15 18:31 | NUR ---
Problems reprioritized. Patient report given, questions answered & plan of care reviewed with Yael CHAN.
[2019-07-15] MEDS ORDERED: diphenhydrAMINE 50 mg/ml inj IV ONE (19:35)
[2019-07-15] MEDS: methylPREDNISolone sod succ 125mg/2ml vial IV SCH (20:00)
[2019-07-15 22:00] VITALS: BP 152/55
[2019-07-16] VITALS (7 sets, daily range): BP systolic 144–159; BP diastolic 51–74
[2019-07-16] MEDS: HYDROcodone/acetaminophen 10/325mg tab PO PRN (00:36)
[2019-07-16] MEDS: methylPREDNISolone sod succ 125mg/2ml vial IV SCH ×4 (01:58→20:57)
--- NOTE | 2019-07-16 03:20 | NUR ---
Patient increasingly agitated and confused. Patient is now noncompliant with oxygen therapy necessary to maintain oxygen saturation above 92%. Will continue to use education reinforcement techniques and monitor. Addendum: 07/16/19 at 0614 by Lashonda White RN Patient's agitation shortly resolved and was once again cooperative and pleasant.
--- NOTE | 2019-07-16 05:30 | NUR ---
Patient had a full episode of urinary incontinence, which proves to be an improvement to her constant retention status. 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
--- NOTE | 2019-07-16 06:28 | NUR ---
Problems reprioritized. Patient report given, questions answered & plan of care reviewed with DUSTIN Lorenz.
[2019-07-16 06:44] LABS: BASOPHILS % (AUTO) 0.2 % (0-1); EOSINOPHILS # (AUTO) 0.1 X10'3 (0-0.9); EOSINOPHILS % (AUTO) 0.5 % (0-6); HEMATOCRIT 30.3 % (35.0-45.0); HEMOGLOBIN 9.9 g/dl (12.0-16.0); LYMPHOCYTES # (AUTO) 0.5 X10'3 (1.1-4.8); LYMPHOCYTES % (AUTO) 3.5 % (21-51); MEAN CORPUSCULAR HEMOGLOBIN 26.2 PG (27.0-31.0); MEAN CORPUSCULAR HGB CONC 32.7 g/dL (33.0-36.5); MEAN CORPUSCULAR VOLUME 80.2 FL (78-98); MEAN PLATELET VOLUME 8.5 FL (7.4-10.4); MONOCYTES # (AUTO) 0.4 X10'3 (0-0.9); MONOCYTES % (AUTO) 2.9 % (2-12); NEUTROPHILS # (AUTO) 12.8 X10'3 (1.8-7.7); NEUTROPHILS % (AUTO) 92.9 % (42-75); PLATELET COUNT 287 X10'3 (140-440); RED BLOOD COUNT 3.78 X10'6 (4.20-5.60); RED CELL DISTRIBUTION WIDTH 15.1 % (11.5-14.5); WHITE BLOOD COUNT 13.8 X10'3 (4.5-11.0)
[2019-07-16 06:47] LABS: ALANINE AMINOTRANSFERASE 42 U/L (12-78); ALBUMIN 2.5 G/DL (3.4-5.0); ALBUMIN/GLOBULIN RATIO 0.5 (1.1-1.5); ALKALINE PHOSPHATASE 111 IU/L (46-116); ANION GAP 7 (8-16); ASPARTATE AMINO TRANSFERASE 15 U/L (10-37); BILIRUBIN,TOTAL 0.7 MG/DL (0.1-1.0); BLOOD UREA NITROGEN 71 MG/DL (7-18); CALCIUM 8.5 MG/DL (8.5-10.1); CHLORIDE 98 MMOL/L (99-107); CREATININE 1.69 MG/DL (0.40-0.90); GLUCOSE 264 MG/DL (70-104); MAGNESIUM 3.7 MG/DL (1.5-2.4); PHOSPHORUS 3.3 MG/DL (2.3-4.5); POTASSIUM 4.1 MMOL/L (3.5-5.1); SODIUM 137 MMOL/L (135-145); TOTAL CARBON DIOXIDE 31.7 MMOL/L (24-32); TOTAL PROTEIN 7.1 G/DL (6.4-8.2); eGFR 34 ML/MIN
[2019-07-16] MEDS: donepezil 5mg tablet PO SCH (07:54)
[2019-07-16] MEDS: pantoprazole 40mg Tablet.DR PO SCH (07:54)
[2019-07-16] MEDS: ferrous sulfate 325mg tablet PO SCH (07:54)
[2019-07-16] MEDS: memantine 5mg tablet PO SCH ×2 (07:54→20:56)
[2019-07-16] MEDS: lactobacillus rhamnosus 10,000 MMU CELLS/CAPSULE PO SCH ×2 (07:54→20:56)
[2019-07-16] MEDS: levoTHYROXINE 88mcg tablet PO SCH (07:54)
[2019-07-16] MEDS: atorvastatin 10mg tablet PO SCH (07:55)
[2019-07-16] MEDS: HYDROchlorothiazide 12.5mg capsule PO SCH (07:55)
[2019-07-16] MEDS: heparin, porcine 5000 units/ml vial SQ SCH ×2 (07:57→20:57)
[2019-07-16] MEDS: docusate sod 100mg capsule PO SCH ×2 (08:00→20:00)
[2019-07-16] MEDS: multivitamins, therapeutics tablet PO SCH (08:00)
[2019-07-16] MEDS ORDERED: levoFLOXACIN-Levaquin 500mg/D5 100 ML IV ONE (09:30)
[2019-07-16] MEDS ORDERED: diphenhydrAMINE 25mg capsule PO PRN (10:00)
[2019-07-16] MEDS: bethanechol 10mg tablet PO SCH ×3 (10:22→17:31)
[2019-07-16] MEDS: nystatin 500,000 unit/5ML UD oral suspension PO SCH ×3 (10:22→20:56)
--- NOTE | 2019-07-16 11:08 | NUR ---
F/u: Pt PO has improved this AM w/ 75-100% breakfast documented though RN reports 50% PO. RD d/w RN regarding liberalization of diet in addition to appetite stimulant and/or alternative nutrition methods per MD approval given 25% avg PO 2 weeks now. 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 Will continue to monitor. F/u: Pt PO continues to be poor 25% avg past [address] d/w RN regarding supplemental alternative nutrition needs given prolonged low PO; RN agrees to d/w [employer] following pt today. Pt regressed r/t terrible UTI per MD note. LBM 10/10 receiving colace and iron. Ensure pudding w/ lunches. TF recs below in case nutrition support started. Would also benefit from liberalization to regular diet given low PO hx. Oleg 13 w/ skin intact. Will continue to monitor. Recommendations: 1) advance to regular diet per MD given poor PO hx 2) Encourage PO intake; consider appetite stimulant per MD approval 3) Ensure Enlive BIDBD pending MD verification prior to sending; ensure pudding w/ lunches 4) Routine bowel care 5) IF MD approves; would benefit from supplemental NGTF using Jevity 1.2 at 60 ml/hr goal; to provide 1440ml fluid, 1728kcals, 1166ml free water, and 80g protein. Initiate at 20ml/hr and advance 20ml Q8 to goal as tolerated. 6) Weekly wts Addendum: 07/16/19 at [address] Amended: Links added.
[2019-07-16] MEDS: amLODIPine 5mg tablet PO SCH (13:51)
[2019-07-16] MEDS: losartan 50mg tablet PO SCH (14:06)
--- NOTE | 2019-07-16 18:30 | NUR ---
Patient in room PCU 3015. I have received report from KIN and had the opportunity to ask questions and assume patient care.
--- NOTE | 2019-07-16 19:15 | NUR ---
BLADDER SCANNED FOR 672 ML. PT STRAIGHT CATH FOR 1100ML CLEAR YELLOW URINE. TOLERATED WELL.
[2019-07-17] MEDS: methylPREDNISolone sod succ 125mg/2ml vial IV SCH ×4 (02:29→21:41)
[2019-07-17 02:30] VITALS: BP 167/54
--- NOTE | 2019-07-17 04:30 | NUR ---
PT FOUND WITH OXYGEN OFF. SATURATIONS 87% ON RA. OXYGEN REPLACED. OXYGEN SATURATIONS REMAIN 88-89%. PT DENIES SOB OR RESPIRATORY DISTRESS, REPOSITIONED IN THE BED. PT TITRATED UP TO 8L HIGH [place]. OXYGEN SATURATIONS 94% AT THIS TIME. WILL CONTINUE TO MONITOR.
[2019-07-17 05:21] LABS: ALANINE AMINOTRANSFERASE 38 U/L (12-78); ALBUMIN 2.5 G/DL (3.4-5.0); ALBUMIN/GLOBULIN RATIO 0.6 (1.1-1.5); ALKALINE PHOSPHATASE 96 IU/L (46-116); ANION GAP 5 (8-16); ASPARTATE AMINO TRANSFERASE 15 U/L (10-37); BILIRUBIN,TOTAL 0.5 MG/DL (0.1-1.0); BLOOD UREA NITROGEN 66 MG/DL (7-18); BUN/CREATININE RATIO 39.8 (6.6-38.0); CHLORIDE 101 MMOL/L (99-107); CREATININE 1.66 MG/DL (0.40-0.90); GLUCOSE 329 MG/DL (70-104); MAGNESIUM 3.3 MG/DL (1.5-2.4); PHOSPHORUS 2.5 MG/DL (2.3-4.5); POTASSIUM 3.9 MMOL/L (3.5-5.1); SODIUM 138 MMOL/L (135-145); TOTAL CARBON DIOXIDE 31.9 MMOL/L (24-32); TOTAL PROTEIN 6.7 G/DL (6.4-8.2); eGFR 35 ML/MIN
[2019-07-17 05:39] LABS: BASOPHILS % (AUTO) 0 % (0-1); EOSINOPHILS % (AUTO) 0.2 % (0-6); HEMOGLOBIN 9.5 g/dl (12.0-16.0); LYMPHOCYTES # (AUTO) 0.6 X10'3 (1.1-4.8); LYMPHOCYTES % (AUTO) 3.6 % (21-51); MEAN CORPUSCULAR HEMOGLOBIN 26.4 PG (27.0-31.0); MEAN CORPUSCULAR HGB CONC 32.7 g/dL (33.0-36.5); MEAN CORPUSCULAR VOLUME 80.6 FL (78-98); MEAN PLATELET VOLUME 8.6 FL (7.4-10.4); MONOCYTES # (AUTO) 0.9 X10'3 (0-0.9); MONOCYTES % (AUTO) 5.5 % (2-12); NEUTROPHILS # (AUTO) 14.7 X10'3 (1.8-7.7); NEUTROPHILS % (AUTO) 90.7 % (42-75); PLATELET COUNT 292 X10'3 (140-440); RED CELL DISTRIBUTION WIDTH 15.4 % (11.5-14.5); WHITE BLOOD COUNT 16.2 X10'3 (4.5-11.0)
[2019-07-17 06:00] VITALS: BP 167/60
--- NOTE | 2019-07-17 06:30 | NUR ---
Patient in room PCU 3015. I have received report from DUSTIN Thomas and had the opportunity to ask questions and assume patient care.
--- NOTE | 2019-07-17 06:33 | NUR ---
Problems reprioritized. Patient report given, questions answered & plan of care reviewed with MEGHANN.
[2019-07-17] MEDS: multivitamins, therapeutics tablet PO SCH (07:29)
[2019-07-17] MEDS: pantoprazole 40mg Tablet.DR PO SCH (07:29)
[2019-07-17] MEDS: ferrous sulfate 325mg tablet PO SCH (07:29)
[2019-07-17] MEDS: donepezil 5mg tablet PO SCH (07:29)
[2019-07-17] MEDS: lactobacillus rhamnosus 10,000 MMU CELLS/CAPSULE PO SCH ×2 (07:29→21:44)
[2019-07-17] MEDS: HYDROchlorothiazide 12.5mg capsule PO SCH (07:29)
[2019-07-17] MEDS: levoTHYROXINE 88mcg tablet PO SCH (07:29)
[2019-07-17] MEDS: docusate sod 100mg capsule PO SCH ×2 (07:29→21:43)
[2019-07-17] MEDS: memantine 5mg tablet PO SCH ×2 (07:30→21:44)
[2019-07-17] MEDS: atorvastatin 10mg tablet PO SCH (07:30)
[2019-07-17] MEDS: bethanechol 10mg tablet PO SCH ×3 (07:30→17:09)
[2019-07-17] MEDS: nystatin 500,000 unit/5ML UD oral suspension PO SCH ×3 (07:30→21:41)
[2019-07-17] MEDS: heparin, porcine 5000 units/ml vial SQ SCH ×2 (07:31→21:45)
[2019-07-17 11:00] VITALS: BP 157/54
[2019-07-17] MEDS: levoFLOXACIN 250mg tablet PO SCH (12:04)
--- NOTE | 2019-07-17 12:56 | NUR ---
Rm [id number]. Can I use sterile water to fill humidification?
[2019-07-17] MEDS: losartan 50mg tablet PO SCH (14:24)
[2019-07-17] MEDS: amLODIPine 5mg tablet PO SCH (14:25)
[2019-07-17 15:00] VITALS: BP 156/57
--- NOTE | 2019-07-17 18:29 | NUR ---
Problems reprioritized. Patient report given, questions answered & plan of care reviewed with Kaye CHAN. Patient stable at transfer of care.
--- NOTE | 2019-07-17 18:30 | NUR ---
Patient in room PCU 3015. I have received report from Yari RN, Betty RN and had the opportunity to ask questions and assume patient care.
--- NOTE | 2019-07-17 18:31 | NUR ---
[place] documentation: I have reviewed and agree with interventions, assessments performed and documented by Eun CHAN. [facility] Medication Administration: For this medication-pass time frame, medication were reviewed, dispensed, administered and documented per hospital policy by Eun CHAN .
[2019-07-17 19:00] VITALS: BP 102/60
[2019-07-17 22:50] VITALS: BP 99/66
[2019-07-18] VITALS (8 sets, daily range): BP systolic 127–175; BP diastolic 45–74
--- NOTE | 2019-07-18 02:25 | NUR ---
Got patient up out of bed with 2 person max assist. Patient's right leg was not working mechanically as it has, patient couldn't seem to coordinate movement with Right leg. Performed thorough neuro check, all signs for stroke are negative including negative arm drift, no facia assymetry, PERRL, equal clinical molecular geneticist strengths. Called and spoke to Raymond Acevedo NP and informed her of his right leg weakness. He states that it does not seem to be focal but more of general weakness. I will continue to monitor this patient closely. Addendum: 07/18/19 at 0230 by Kaye Tian RN Patient current set of vitals 174/62 R arm, 161/49 L arm, ID 71, 97.8, O2 95% 5L. PRN hydralazine ordered for SBP >165. Will re-check and administer if necessary.
--- NOTE | 2019-07-18 02:35 | NUR ---
Patient was able to void 125 mL while having her bowel movement.
--- NOTE | 2019-07-18 02:36 | NUR ---
Patient was able to void 125 mL of urine while pushing during her bowel movement. Addendum: 07/18/19 at 0237 by Kaye Tian RN Amended: Links added.
[2019-07-18] MEDS: methylPREDNISolone sod succ 125mg/2ml vial IV SCH ×4 (02:42→20:10)
[2019-07-18] MEDS: hydrALAZINE 25 MG tablet PO PRN (02:43)
--- NOTE | 2019-07-18 02:47 | NUR ---
Pt bp is 175/62. PRN hydralazine given. Will re assess
--- NOTE | 2019-07-18 02:51 | NUR ---
No straight cath needed at this time, Bladder scan read pt to have 425, patient was able to push out 125 with her BM. Will bladder scan again in 2 hrs. Addendum: 07/18/19 at 0252 by Kaye Tian RN Amended: Links added.
--- NOTE | 2019-07-18 02:53 | NUR ---
Straight cath not needed at this time frame Addendum: 07/18/19 at 0254 by Kaye Tian RN Amended: Links added.
[2019-07-18] MEDS: HYDROcodone/acetaminophen 5mg/325mg tablet PO PRN (03:34)
[2019-07-18 05:40] LABS: BASOPHILS % (AUTO) 0.1 % (0-1); EOSINOPHILS % (AUTO) 0 % (0-6); HEMATOCRIT 31.3 % (35.0-45.0); HEMOGLOBIN 10.2 g/dl (12.0-16.0); LYMPHOCYTES # (AUTO) 0.5 X10'3 (1.1-4.8); LYMPHOCYTES % (AUTO) 3.2 % (21-51); MEAN CORPUSCULAR HEMOGLOBIN 26.3 PG (27.0-31.0); MEAN CORPUSCULAR HGB CONC 32.5 g/dL (33.0-36.5); MEAN CORPUSCULAR VOLUME 80.9 FL (78-98); MEAN PLATELET VOLUME 8.8 FL (7.4-10.4); MONOCYTES # (AUTO) 0.8 X10'3 (0-0.9); MONOCYTES % (AUTO) 4.8 % (2-12); NEUTROPHILS # (AUTO) 14.8 X10'3 (1.8-7.7); NEUTROPHILS % (AUTO) 91.9 % (42-75); PLATELET COUNT 312 X10'3 (140-440); RED BLOOD COUNT 3.87 X10'6 (4.20-5.60); RED CELL DISTRIBUTION WIDTH 15.3 % (11.5-14.5); WHITE BLOOD COUNT 16.1 X10'3 (4.5-11.0)
--- NOTE | 2019-07-18 05:54 | NUR ---
Straight cath performed after getting patient up to commode to try to void. She was able to void approx 20 mL on her own. Straight cath performed after and 525 was her output.
[2019-07-18 05:56] LABS: ALBUMIN 2.7 G/DL (3.4-5.0); ANION GAP 8 (8-16); BLOOD UREA NITROGEN 60 MG/DL (7-18); BUN/CREATININE RATIO 35.7 (6.6-38.0); CALCIUM 8.1 MG/DL (8.5-10.1); CHLORIDE 99 MMOL/L (99-107); CREATININE 1.68 MG/DL (0.40-0.90); GLUCOSE 310 MG/DL (70-104); PHOSPHORUS 2.9 MG/DL (2.3-4.5); POTASSIUM 3.7 MMOL/L (3.5-5.1); SODIUM 138 MMOL/L (135-145); TOTAL CARBON DIOXIDE 31.5 MMOL/L (24-32); eGFR 35 ML/MIN
--- NOTE | 2019-07-18 06:06 | NUR ---
Informed Raymond Acevedo NP of patient's BP of 174/63. I gave her PRN hydralazine 3 hrs ago for elevated Bp . Raymond does not want to order anything new at this time. Will pass this message to dayshift and continue to monitor VS.
--- NOTE | 2019-07-18 06:33 | NUR ---
Problems reprioritized. Patient report given, questions answered & plan of care reviewed with DUSTIN Aguiar .
--- NOTE | 2019-07-18 06:49 | NUR ---
Patient in room PCU 3015B. I have received report from Kaye CHAN and had the opportunity to ask questions and assume patient care.
[2019-07-18] MEDS: pantoprazole 40mg Tablet.DR PO SCH (08:11)
[2019-07-18] MEDS: atorvastatin 10mg tablet PO SCH (08:11)
[2019-07-18] MEDS: bethanechol 10mg tablet PO SCH ×3 (08:11→17:48)
[2019-07-18] MEDS: lactobacillus rhamnosus 10,000 MMU CELLS/CAPSULE PO SCH ×2 (08:13→20:10)
[2019-07-18] MEDS: donepezil 5mg tablet PO SCH (08:13)
[2019-07-18] MEDS: docusate sod 100mg capsule PO SCH ×2 (08:13→20:10)
[2019-07-18] MEDS: levoTHYROXINE 88mcg tablet PO SCH (08:15)
[2019-07-18] MEDS: HYDROchlorothiazide 12.5mg capsule PO SCH (08:15)
[2019-07-18] MEDS: nystatin 500,000 unit/5ML UD oral suspension PO SCH ×3 (08:15→21:22)
[2019-07-18] MEDS: memantine 5mg tablet PO SCH ×2 (08:15→20:13)
[2019-07-18] MEDS: ferrous sulfate 325mg tablet PO SCH (08:16)
[2019-07-18] MEDS: multivitamins, therapeutics tablet PO SCH (08:17)
[2019-07-18] MEDS: heparin, porcine 5000 units/ml vial SQ SCH ×2 (08:18→20:13)
[2019-07-18] MEDS: ondansetron/PF 4mg/2ml inj IV PRN (09:36)
[2019-07-18] MEDS: levoFLOXACIN 250mg tablet PO SCH (11:57)
--- NOTE | 2019-07-18 12:35 | NUR ---
I agree with deloris Willis RN assessment.
[2019-07-18] MEDS: amLODIPine 5mg tablet PO SCH (13:43)
[2019-07-18] MEDS: losartan 50mg tablet PO SCH (13:43)
--- NOTE | 2019-07-18 18:08 | NUR ---
Problems reprioritized. Patient report given, questions answered & plan of care reviewed with Kaye CHAN. Patient stable at transfer of care.
--- NOTE | 2019-07-18 18:09 | NUR ---
[place] documentation: I have reviewed and agree with interventions, assessments performed and documented by Alba CHAN. [place] Medication Administration: For this medication-pass time frame, medication were reviewed, dispensed, administered and documented per hospital policy by Alba CHAN.
--- NOTE | 2019-07-18 18:29 | NUR ---
Spoke with Dr. Joaquin and he does not wish to order [facility] any labs for AM labs. 07/19
--- NOTE | 2019-07-18 18:33 | NUR ---
Patient in room PCU 3015. I have received report from Stefania RN, Alba RN and had the opportunity to ask questions and assume patient care.
--- NOTE | 2019-07-18 21:01 | NUR ---
Original bladder scan shows 386 mL of urine in bladder. Patient was ambulated to commode and was able to void out 25 mL of urine, with a scant amount of stool. Patient had repeat bladder scan at 2100 showing 585, straight cath was performed and patient had 425 mL of urine out. Addendum: 07/19/19 at 0510 by Kaye Tian RN ammend 2100 bladder scan time to be 0200.
[2019-07-19] MEDS: methylPREDNISolone sod succ 125mg/2ml vial IV SCH ×2 (02:56→07:06)
[2019-07-19 03:00] VITALS: BP 143/52
[2019-07-19] MEDS: HYDROcodone/acetaminophen 5mg/325mg tablet PO PRN (03:18)
--- NOTE | 2019-07-19 04:52 | NUR ---
We have been bladder scanning patient and getting her up to the commode. At 0200 patient had 585 mL of urine shown on bladder scanner. We have gotten the patient up to commode after each scan. Last scan after getting her up, she was able to vooid 75 mL of urine on her own by bearing down, and with encouragement and reminders to push.
--- NOTE | 2019-07-19 05:01 | NUR ---
Bladder Scan at 1853 showed 386 mL, pt void on commode 25 mL. BS at 0200 showed 585 mL. pt void on commode was 75 mL, pt straight cathed and had 425 mL out BS at 0500 showed 535 mL, pt void on commode was 125 mL. Will attempt to get patient up one more time to void.
[2019-07-19 06:00] VITALS: BP 148/87
--- NOTE | 2019-07-19 06:34 | NUR ---
Patient in room PCU 3015. I have received report from Teresita CHAN, and had the opportunity to ask questions and assume patient care. Patient is sleeping peacefully and v/s have been noted.
--- NOTE | 2019-07-19 06:34 | NUR ---
Problems reprioritized. Patient report given, questions answered & plan of care reviewed with Tg RN, DUSTIN Aguiar.
[2019-07-19] MEDS: ferrous sulfate 325mg tablet PO SCH (07:06)
[2019-07-19] MEDS: bethanechol 10mg tablet PO SCH ×2 (07:07→12:56)
[2019-07-19] MEDS: atorvastatin 10mg tablet PO SCH (07:07)
[2019-07-19] MEDS: HYDROchlorothiazide 12.5mg capsule PO SCH (07:08)
[2019-07-19] MEDS: lactobacillus rhamnosus 10,000 MMU CELLS/CAPSULE PO SCH (07:08)
[2019-07-19] MEDS: pantoprazole 40mg Tablet.DR PO SCH (07:08)
[2019-07-19] MEDS: memantine 5mg tablet PO SCH (07:08)
[2019-07-19] MEDS: levoTHYROXINE 88mcg tablet PO SCH (07:09)
[2019-07-19] MEDS: donepezil 5mg tablet PO SCH (07:09)
[2019-07-19] MEDS: docusate sod 100mg capsule PO SCH (07:09)
[2019-07-19] MEDS ORDERED: FLU VACC QS2019-20 36MOS UP/PF 60 MCG/0.5 ML SYRINGE IMVAC ONE (08:00)
--- NOTE | 2019-07-19 09:32 | NUR ---
Reassessment: Patient's appetite seems to be continually improving documented with average 50% PO intake with 100% of protein at breakfast this morning likely closely meeting nutrient needs for geriatric age. Wt stable throughout admit. [facility] 07/18. Will continue to follow and make recommendations as appropriate. Recommendations: 1) advance to regular diet per MD given poor PO hx 2) Encourage PO intake; consider appetite stimulant per MD approval 3) Ensure Enlive BIDBD pending MD verification prior to sending; ensure pudding w/ lunches 4) Routine bowel care 5) Weekly wts Addendum: 07/19/19 at [address] Amended: Links added.
[2019-07-19 11:00] VITALS: BP 149/87
[2019-07-19] MEDS: heparin, porcine 5000 units/ml vial SQ SCH (12:55)
[2019-07-19] MEDS: levoFLOXACIN 250mg tablet PO SCH (12:56)
[2019-07-19] MEDS: multivitamins, therapeutics tablet PO SCH (12:56)
[2019-07-19] MEDS: nystatin 500,000 unit/5ML UD oral suspension PO SCH (12:57)
--- NOTE | 2019-07-19 14:20 | NUR ---
Called report to INNA Quiles at [facility]. Informed her of the patients inability to void. Relayed to her that we are bladder scanning her q4h, then BSC to void, then if unsuccessful we straight cath patient. Informed that the patient is on 5L NC, 2 person assist, v/s given, PPM placed 07/03. No further questions from Etta. Will prepare patient for transport.
--- NOTE | 2019-07-19 14:25 | NUR ---
Patient has been straight cathed by DUSTIN Mas with an output of 375 mL. Patients PIV has been removed and is intact. Patient has been removed from tele. Patient has been assisted to wheel chair and is on 5L NC. [facility]. Patients belongings have all been gathered and sent with the patient. Chasidy (niece) has been called and informed of the patients transport.
== END 2019-07-19 15:08 | DRG 242 ==
LOC: ER 12:44 → ED HOLD 15:39 → CMPBEDREQ 18:05 → CICU 2S 18:11 → PCU 3S 07-05 19:00
PROVIDERS: ATTEND Internal Medicine Critical Care Medicine
PROC: 0JH606Z Insertion of Pacemaker, Dual Chamber into Chest Subcutaneous Tissue and Fascia, Open Approach (ICD-10-PCS; principal; 2019-07-03)
PROC: 02HK3JZ Insertion of Pacemaker Lead into Right Ventricle, Percutaneous Approach (ICD-10-PCS; 2019-07-03)
PROC: 02H63JZ Insertion of Pacemaker Lead into Right Atrium, Percutaneous Approach (ICD-10-PCS; 2019-07-03)
PROC: 04HY32Z Insertion of Monitoring Device into Lower Artery, Percutaneous Approach (ICD-10-PCS; 2019-07-03)
PROC: 4A133B1 Monitoring of Arterial Pressure, Peripheral, Percutaneous Approach (ICD-10-PCS; 2019-07-03)
PROC: 4A133J1 Monitoring of Arterial Pulse, Peripheral, Percutaneous Approach (ICD-10-PCS; 2019-07-03)
PROC: 05HY33Z Insertion of Infusion Device into Upper Vein, Percutaneous Approach (ICD-10-PCS; 2019-07-03)
PROC: 3E02340 Introduction of Influenza Vaccine into Muscle, Percutaneous Approach (ICD-10-PCS; 2019-07-13)
DX: I44.2 Atrioventricular block, complete (principal); J96.01 Acute respiratory failure with hypoxia; N17.9 Acute kidney failure, unspecified; N39.0 Urinary tract infection, site not specified; I31.3 Pericardial effusion (noninflammatory); E87.5 Hyperkalemia; E89.0 Postprocedural hypothyroidism; F03.90 Unspecified dementia, unspecified severity, without behavioral disturbance, psychotic disturbance, mood disturbance, and anxiety; I95.9 Hypotension, unspecified; M54.9 Dorsalgia, unspecified; B96.20 Unspecified Escherichia coli [E. coli] as the cause of diseases classified elsewhere; D64.9 Anemia, unspecified; E78.5 Hyperlipidemia, unspecified; G89.29 Other chronic pain; N18.3 Chronic kidney disease, stage 3 (moderate); I12.9 Hypertensive chronic kidney disease with stage 1 through stage 4 chronic kidney disease, or unspecified chronic kidney disease; Z60.2 Problems related to living alone; R00.1 Bradycardia, unspecified; R21 Rash and other nonspecific skin eruption; Z23 Encounter for immunization; Z88.0 Allergy status to penicillin; Z88.1 Allergy status to other antibiotic agents; Z85.528 Personal history of other malignant neoplasm of kidney; Z79.890 Hormone replacement therapy; Z79.899 Other long term (current) drug therapy; Z90.5 Acquired absence of kidney; Z93.3 Colostomy status; Z90.49 Acquired absence of other specified parts of digestive tract
CPT/HCPCS: 33208; 36415; 36556; 71045; 71250; 76604; 76937; 80048; 80053; 80069; 81001; 82570; 82948; 83036; 83605; 83735; 83935; 84100; 84132; 84145; 84300; 84443; 84484; 85025; 85610; 85730; 87040; 87077; 87081; 87088; 87186; 92508; 92616; 93005; 93306; 93970; 94760; 96361; 96365; 96375; 97110; 97112; 97116; 97161; 97530; 97535; 99152; 99153; 99291; A4565; A4620; C1785; C1898; G0378; J0360; J1200; J1644; J1815; J1940; J1956; J2250; J2405; J2930; J3010; J3490; Q0163; Q2037